=== PATIENT | female | born 1955 | race Caucasian/White ===

== ENCOUNTER 2022-11-30 08:26 | Outpatient (OUT) | payer MEDICARE, SELFPAY ==
--- NOTE | 2022-11-30 08:42 | MM_ITS ---
Patient: FREDA YOO Exam Date: 11/30/2022 : 1955 Gender:F Ordering : LAURENT DANIEL SANCHEZ [employer]ANGE RESEARCHER Admission #: [id number] Family : Order #: [id number] CLICK HERE TO VIEW EXAM RADIOLOGY REPORT PROCEDURE: MM TOMOSYNTHESIS SCREENING BI COMPARISON: MM SCREENING MAMMO BI, 11/20/2018. MM SCREENING MAMMO BI, 05/28/2015. INDICATIONS: SCREENING MAMMOGRAM Z12.31 Calculator Name NCI Breast Cancer Risk Assessment Tool 5 Year Breast Cancer Risk 1.50% Lifetime Breast Cancer Risk 5.00% Personal Breast Cancer No Personal Ovarian Cancer No Treatments None Family Cancers Father with lung cancer at age ~66. LOCATION: [facility] BREAST COMPOSITION: Heterogeneously dense,which may obscure small masses. FINDINGS: DIAGNOSTIC CATEGORY 1--NEGATIVE. RIGHT BREAST: No significant suspicious finding. No significant change has occurred. LEFT BREAST: No significant suspicious finding. No significant change has occurred. RECOMMENDATIONS: ROUTINE MAMMOGRAM AND CLINICAL EVALUATION IN 12 MONTHS. PLEASE NOTE: A NORMAL MAMMOGRAM DOES NOT EXCLUDE THE POSSIBILITY OF BREAST CANCER. A CLINICALLY SUSPICIOUS PALPABLE LUMP SHOULD BE BIOPSIED. Dictated by: Bryce Velazquez M.D. on 12/08/2022 at 12:51 Approved by: Bryce Velazquez M.D. on 12/08/2022 at 12:59
--- NOTE | 2022-11-30 08:46 | XR_ITS ---
[address] [address] Patient Name: FREDA YOO MRN: [id number] date: 1955 Sex: F Assigned Patient Location: [facility] Current Patient Location: [facility] Accession/Order Number: [id number] Exam Date: 11/30/2022 08:55 Report Date: 11/30/2022 09:26 At the request of: DANIEL SANCHEZ Procedure: XR DEXA axial skeleton EXAMINATION: XR DEXA axial skeleton, 11/30/2022 8:55 AM EDT HISTORY: POST MENOPAUSAL Z78.0 COMPARISON: None. TECHNIQUE: Dual-energy X-ray absorptiometry (DEXA) bone density study performed for the axial skeleton. HISTORY: POST MENOPAUSAL Z78.0 FINDINGS: Bone mineral density AP spine L1-L4 measures 1.157 g/sq cm. T score -0.2. WHO consultation: Normal. Lowest bone mineral density in the left femoral neck measures 0.86 g/sq cm for T score -1.1. WHO classification: Osteopenia IMPRESSION: Osteopenia. Moderate fracture risk Electronically authenticated by: ELINOR CASTRO Date: 11/30/2022 09:26
== END 2022-11-30 08:27 | disposition home or self-care (01) ==
LOC: MAMMO 08:32
PROVIDERS: PCP Nurse Practitioner; Visit Provider Nurse Practitioner
DX: M81.0 Age-related osteoporosis without current pathological fracture (principal); Z12.31 Encounter for screening mammogram for malignant neoplasm of breast; M85.80 Other specified disorders of bone density and structure, unspecified site; Z80.1 Family history of malignant neoplasm of trachea, bronchus and lung
CPT/HCPCS: 77063; 77067; 77080

== ENCOUNTER 2024-01-22 08:33 | Outpatient (OUT) | payer MEDICARE, SELFPAY ==
--- NOTE | 2024-01-22 08:39 | MM_ITS ---
Patient Name: FREDA YOO MR#: [id number] : 1955 Exam Date: 01/22/2024 Ordering Doctor: LAURENT Rojas CNP RADIOLOGY REPORT PROCEDURE: MM TOMOSYNTHESIS SCREENING BI COMPARISON: MM SCREENING MAMMO BI, 11/20/2018. MM TOMOSYNTHESIS SCREENING BI, 11/30/2022. INDICATIONS: Screening Calculator Name NCI Breast Cancer Risk Assessment Tool 5 Year Breast Cancer Risk 1.50% Lifetime Breast Cancer Risk 4.50% Personal Breast Cancer No Personal Ovarian Cancer No Treatments None Family Cancers Father with lung cancer at age ~66. LOCATION: [facility] BREAST COMPOSITION: The breasts are heterogeneously dense,which may obscure small masses. FINDINGS: DIAGNOSTIC CATEGORY 1--NEGATIVE. NO CHANGE FROM COMPARISON ASSESSMENT. Scattered benign-appearing calcifications are present. Scattered benign-appearing lymph nodes are present. RIGHT BREAST: No significant suspicious finding. LEFT BREAST: No significant suspicious finding. RECOMMENDATIONS: ROUTINE MAMMOGRAM AND CLINICAL EVALUATION IN 12 MONTHS. PLEASE NOTE: A NORMAL MAMMOGRAM DOES NOT EXCLUDE THE POSSIBILITY OF BREAST CANCER. A CLINICALLY SUSPICIOUS PALPABLE LUMP SHOULD BE BIOPSIED. Dictated by: Jaylen Ornelas MD on 01/22/2024 at 11:08 Approved by: Jaylen Ornelas MD on 01/22/2024 at 11:10
== END 2024-01-22 08:34 | disposition home or self-care (01) ==
LOC: MAMMO 08:34
PROVIDERS: PCP Nurse Practitioner; Visit Provider Nurse Practitioner
DX: Z12.31 Encounter for screening mammogram for malignant neoplasm of breast (principal); Z80.1 Family history of malignant neoplasm of trachea, bronchus and lung
CPT/HCPCS: 77063; 77067

== ENCOUNTER 2025-04-15 15:24 | Outpatient (OUT) | payer MEDICARE, SELFPAY ==
--- OUTSIDE RECORDS SUMMARY | 2025-04-15 15:26 | XMS_ITS | Clinical Summary ---
Author Organization [employer] [facility] tem Address [id number] [address] [place] [address] Care Team Providers Care Bedspread Cutter Name Role Phone TamirbatshevazoeEstrellita guardado Golden B[employer]-PATENT LITIGATION ASSOCIATE Primary Care Provider Allergies Active AllergyReactionsCriticalityNoted HuxrPgmlwcklZwdgzaw55/05/2013 Medications MedicationSigDispense QuantityRefillsLast FilledStart DateEnd DateStatus calcium citrate-vitamin D3 (CITRACAL MAXIMUM) 315-250 mg-units per tablet Take 2 tablets by mouth in the morning.Active MULTIVITAMIN ORAL Take 1 tablet by mouth once daily.Active Active Problems No known active problems Family History Medical HistoryRelationNameCommentsColon cancerBrotherCancerFatherBreast cancer Neg HxRelationNameStatusCommentsBrotherAliveFatherDeceasedMotherDeceased Social History Tobacco UseTypesPacks/DayYears UsedDateSmoking Tobacco: NeverSmokeless Tobacco: Never Tobacco Cessation:Counseling Given: Not Answered Alcohol UseStandard Drinks/WeekCommentsNot Currently0 (1 standard drink = 0.6 oz pure alcohol)ChildcareAnswerDate LifvojgsGnkylbvwoNvmeqrf58/12/2019Employment AnswerDate CwhwyjfbTxjcndmvzuVcrfxng93/12/2019Purpose - LifeAnswerDate Recorded Purpose and direction in mndxAnpfhlo22/11/2021CommentsNoSex and Gender InformationValueDate RecordedSex Assigned at BirthNot on fileLegal SexFemale 01/08/2015 12:10 PM EDTGender IdentityNot on fileSexual OrientationNot on file Last Filed Vital Signs Vital SignReadingTime TakenCommentsBlood Cpnkwsvv282/6811/ 8:45 AM EST Bbzfd425405/01/2024 8:45 AM MJWGqexwlxfssa90.1 ??C (98.7 ??F)05/01/2024 6:17 AM ESTRespiratory Ihnu124305/01/2024 8:45 AM ESTOxygen Ogzgdkddky01%05/01/2024 8:45 AM ESTInhaled Oxygen Concentration--Mhrsec16.6 kg (160 lb)05/01/2024 6:17 AM BRNZyhpyz688.9 cm (5' 1 )05/01/2024 6:17 AM ESTBody Mass Index30.23107/01/2023 6:17 AM EST Plan of Treatment Health MaintenanceDue DateLast DoneCommentsDepression Itdwhdkqa30/18/1966Adult BMI Follow Up Plan01/21/1972DTaP,Tdap and Td Vaccines (1 - Tdap)1973Zoster (Shingles) Vaccine (1 of 2)01/21/2004Fall Risk Alxoqomrm83/18/2019COVID-19 Vaccine ( - season), 04/02/2022, 03/29/2021, Additional history existsInfluenza Ojhwpah19, 05/07/2022, 03/11/2021, Additional history existsAdult BMI Mtocssxze58 Tobacco Gutghjkxu73olonoscopy, 05/01/2024 RSV ( or age 60+ yrs)Rnyxlinwm40/25/2023 Medical Devices Not on file Procedures Procedure NamePriorityDate/TimeAssociated DiagnosisCommentsPROVATION COLONOSCOPY Whgqvhg5905/01/2024 7:54 AM EST from Last 3 Months or Most Recently Relevant to Health Maintenance Results * Colonoscopy Report (05/01/2024 7:54 AM EST)Specimen (Source)Anatomical Location / LateralityCollection Method / VolumeCollection TimeReceived Time Narrative SYSTEMGENERATED, DOCUMENTATION - 05/01/2024 7:54 AM EST This order has been auto-finalized for image and report archival in PACs. *For full report details, please reach out to your physician. ??This image is visible to you in MyChart.* Authorizing ProviderResult TypeResult StatusMenaleksami Pat Fernando MDIMG OR IMG ORDERABLESFinal Result from Last 3 Months or Most Recently Relevant to Health Maintenance Insurance Care Teams Team MemberRelationshipSpecialtyStart DateEnd Date Estrellita Rojas, SUPERVISOR [employer]-PATENT LITIGATION ASSOCIATE [facility] [place] [place] [address] PCP - GeneralNurse Gswxmsrcojze47/12/24
--- OUTSIDE RECORDS SUMMARY | 2025-04-15 15:26 | XMS_ITS | Clinical Summary ---
Author Organization [facility] Address [address] [place] [address] Care Team Providers Care Photoengraving Supervisor Name Role Phone Estrellita Rojas OFFICE PROFESSIONAL Unavailable [phone] Oscar Aldrich MD Primary Care Provider [phone] Estrellita Rojas OFFICE PROFESSIONAL Unavailable [phone] Allergies Active AllergyReactionsCriticalityNoted KjhzBwtazgupGauhbvm96/05/2023 Medications MedicationSigDispense QuantityRefillsLast FilledStart DateEnd DateStatus levothyroxine (Synthroid, Levoxyl) 75 MCG tablet Indications:Hypothyroidism, unspecifiedTake 1 tablet (75 mcg) by mouth Daily 90 tablet 5Active alendronate (Fosamax) 70 MG tablet Indications:Age-related osteoporosis without current pathological fracture, OsteoporosisTake 1 tablet (70 mg) by mouth every 7 (seven) days 12 tablet 5Active simvastatin (Zocor) 20 MG tablet Indications:Hyperlipidemia, unspecifiedTake 1 tablet (20 mg) by mouth at bedtime 90 tablet 5Active Active Problems ProblemNoted DateDiagnosed DateColon cancer pqiplnifk40/09/2024Encounter for subsequent annual wellness visit (AWV) in Medicare wgiqtwq4703/13/2024 Assessment & Plan (03/13/2024 6:33 PM EDT): Reviewed Ht/Wt/BMI Recommend eye exam yearly Recommend dental exams twice a year Balance work/leisure activities Exercises is recommended most days of the week (appropriate as chronic conditions allow) Follow up yearly and prn Mixed nrtbnkbwoibndy25/04/2024 Assessment & Plan (10/21/2024 2:49 PM EDT): On statin therapy Check labs yearly and prn dose changes Discussed her lab results, no change in dose Try to cut back on carb consumption Assessment & Plan (09/07/2023 9:29 AM EDT): Check labs, statin continue Essential hypertension, nmwwmi4409/07/2023 Assessment & Plan (09/07/2023 9:29 AM EDT): No meds, and BP is normal Osteoarthritis of knee09/07/2023Osteoporosis, nasgfktilpvgig03/04/2024 Overview (09/07/2023): DEXA: 11/30/22, -1.1, osteopenia Assessment & Plan (10/21/2024 7:43 AM EDT): DEXA: 11/30/22: -1.1 osteopenia Takes alendronate weekly Due for DEXA 11/2024 Assessment & Plan (09/07/2023 9:28 AM EDT): Check labs, cont current meds Encounter for screening mammogram for malignant neoplasm of modzhq3409/07/2023 Hypothyroidism, okhwpdlaohi04/11/2024 Assessment & Plan (10/21/2024 7:42 AM EDT): On levothyroxine Check labs yearly and prn dose changes, or changes in sxs Assessment & Plan (09/07/2023 9:29 AM EDT): Is doing well on current meds Will check labs Resolved Problems ProblemNoted DateDiagnosed DateResolved DateURI, acute Assessment & Plan (06/03/2024 5:06 PM EST): Likely viral Recommend OTC treatment of symptoms, has trialed multiple OTC meds, cough continues, clear mucus. Iwould recommend OTC Flonase nasal spray, pt does not like to use this Also recommend she take her anti histamine meds, she states she hasn't been d/t ingredients in her multiple other OTC cough meds she is taking Will add tessalon Q 8 hours prn cough If on 06/06/24 she is not better call office Symptoms of urinary tract idvbglzmb34/ Immunizations ImmunizationAdministration DatesNext DueInfluenza, High Dose Seasonal, Preservative Free05/10/2024,03/21/2019Influenza, Seasonal, Quadrivalent, Mpysmjkrrm60/24/2023,05/07/2022,03/11/2021,04/04/2020Moderna SARS-CoV-2 Qqborqckbgh24/16/2021,1Pfizer Purple Cap SARS-CoV-2 Vaccination 1Pneumococcal Conjugate PCV 131RSV, recombinant, protein subunit RSVpreF, adjuvant reconstitu, 120mcg/0.5mL, PF (Arexvy)04/29/2023 SARS-COV-2 (COVID-19) vaccine, mRNA, spike protein, LNP, PF, tigre-sucrose, 30 mcg/0.3 mL02/26/20230644QTAL-YXZ-3 (COVID-19) vaccine, mRNA, spike protein, LNP, bivalent, preservative free, 30 mcg/0.3 mLdose, tigre-sucrose formulation 04/02/2022Zoster, Ncbicpmhgfg05/06/2024 Family History Medical HistoryRelationNameCommentsCancerFatherParkinson's diseaseMotherRelation NameStatusCommentsFatherMother Social History Tobacco UseTypesPacks/DayYears UsedDateSmoking Tobacco: NeverSmokeless Tobacco: Never Tobacco Cessation:Counseling Given: Not Answered Alcohol UseStandard Drinks/WeekCommentsNever0 (1 standard drink = 0.6 oz pure alcohol)caffine: soda 1-2 yewzuH5073 Health LiteracyAnswerDate RecordedHow often do you need to have someone help you when you read instructions, pamphlets, or other written material from your doctor or pharmacy?Never03/06/2024Social Connection and Isolation PanelAnswerDate RecordedIn a typical week, how many times do you talk on the phone with family, friends, or neighbors?Three times a week03/06/2024How often do you get together with friends or relatives?Three times a week03/06/2024How often do you attend scientology or zoroastrian services?1 to 4 times per year03/06/2024o you belong to any clubs or organizations such as scientology groups, unions, fraternal or athletic groups, or school groups?No 03/06/2024How often do you attend meetings of the clubs or organizations you belong to?Never03/06/2024re you , , , , never , or living with a partner?Rgslylg0303/06/2024UDIT-CAnswerDate RecordedQ1: How often do you have a drink containing alcohol?Never03/06/2024Q2: How many drinks containing alcohol do you have on a typical day when you are drinking? Patient does not drink03/06/2024Q3: How often do you have six or more drinks on one occasion?Never03/06/2024HQ-2AnswerDate RecordedPatient Health Questionnaire-2 Aycxl131[facility] [place] [facility] - Occupational Stress QuestionnaireAnswerDate RecordedDo you feel stress - tense, restless, nervous, or anxious, or unable to sleep at night because yourmind is troubled all the time - these days?Not at all03/06/2024Exercise Vital SignAnswer Date RecordedOn average, how many days per week do you engage in moderate to strenuous exercise (like a brisk walk)?0 days03/06/2024On average, how many minutes do you engage in exercise at this level?10 min03/06/2024Hunger Vital SignAnswerDate RecordedWithin the past 12 months, you worried that your food would run out before you got the money to buymore.Never true03/06/2024Within the past 12 months, the food you bought just didn't last and you didn't have money to get more.Never true03/06/2024RAPARE - TransportationAnswerDate RecordedIn the past 12 months, has lack of transportation kept you from medical appointments or from getting medications?No03/06/2024In the past 12 months, has lack of transportation kept you from meetings, work, or from getting things needed for daily living?No03/06/2024Housing Stability Vital SignAnswerDate RecordedIn the last 12 months, was there a time when you were not able to pay the mortgage or rent on time?No03/06/2024In the past 12 months, how many times have you moved where you were living?t any time in the past 12 months, were you homeless or living in a skilled nursing (including now)?No03/06/2024 CommentsUnknownSex and Gender InformationValueDate RecordedSex Assigned at BirthNot on fileLegal DpgEcwepo33/09/2023 7:54 AM EDTGender IdentityNot on fileSexual OrientationNot on file Last Filed Vital Signs Vital SignReadingTime TakenCommentsBlood Wxydcbuj866/7805 2:29 PM EDT Xlrtn4700 2:29 PM XMNMrnnqluwywk77.9 ??C (98.5 ??F)10/21/2024 2:29 PM EDTRespiratory Sscv351110/21/2024 2:29 PM EDTOxygen Pwbzbamxkx83%10/21/2024 2:29 PM EDTInhaled Oxygen Concentration--Pitlnw77.9 kg (165 lb 3.2 oz)10/21/2024 2:29 PM XIKCdzhmr771.9 cm (5' 1 )06/03/2024 4:30 PM ESTBody Mass Index31. 4:30 PM EST Plan of Treatment Health MaintenanceDue DateLast DoneCommentsCT Lwmrgynksrjt1955FIT 1955FOBT1955 2598Smarrqsomqtcj1954FIT-DNA/ Xtyhycurq47/, 01/22/2024, 01/22/2024, Additional history exists COVID-19 Vaccine ( season)/11/2023, 02/26/2023, 03/29/2021, Additional history existsInfluenza Vaccine (#1)/11/2023, 02/26/2023, 05/07/2022, Additional history existsMedicare Annual Wellness (AWV) /02/2024, 03/13/2024neumococcal Vaccine: 65+ Years (2 of 2 - PCV20 or PCV21)Postponed from 03/21/2020 (Patient Refused) Hbpknkptoim43, 05/01/2024, 4Colorectal Cancer Zrvpmnodm43/27/2029 Procedures Procedure NamePriorityDate/TimeAssociated DiagnosisCommentsMM TOMOSYNTHESIS SCREENING BI01/22/2024 11:10 AM EDT from Last 3 Months or Most Recently Relevant to Health Maintenance Results * MM TOMOSYNTHESIS SCREENING BI (01/22/2024 11:10 AM EDT)Anatomical Region LateralityModalityOtherSpecimen (Source)Anatomical Location / Laterality Collection Method / VolumeCollection TimeReceived Time01/22/2024 11:10 AM EDT Narrative 01/22/2024 11:11 AM EDT [facility] ?[address] ? [place] [address] ? Mammography Report ? Signed ? Patient: FREDO, M ?MR#: [id number] ?? : 1955 ?Acct:[id number] ?? Age/Sex: 69 / F ?ADM Date: 01/22/24 ?? Loc: MAMMO ? Attending Dr: Estrellita J Tamirhjacob OFFICE PROFESSIONAL ? Ordering Physician: Estrellita Rojas OFFICE PROFESSIONAL ?Results: ? Date of Service: 01/22/24 ?Follow Up: ? Procedure(s): MM tomosynthesis screening BI ?? Accession Number(s): [id number] ? cc: Estrellita Rojas OFFICE PROFESSIONAL ? Patient Name: ? NANCY YOO ? MR#: [id number] ? : 1955 ? Exam Date: 01/22/2024 ?? Ordering Doctor: LAURENT Rojas CNP ? RADIOLOGY REPORT ? PROCEDURE: ? MM TOMOSYNTHESIS SCREENING BI ? COMPARISON: ? MM SCREENING MAMMO BI, 11/20/2018. ??MM TOMOSYNTHESIS SCREENING ?? BI, 11/30/2022. ? INDICATIONS: ? Screening ? Calculator Name ? NCI Breast Cancer Risk Assessment Tool ?? 5 Year Breast Cancer Risk ? 1.50% ?? Lifetime Breast Cancer Risk ? 4.50% ?? Personal Breast Cancer ?No ?? Personal Ovarian Cancer ? No ?? Treatments ? None ?? Family Cancers ? Father with lung cancer at age ??66. ? LOCATION: ? [facility] ? BREAST COMPOSITION: ? The breasts are heterogeneously dense,which may ?? obscure small masses. ? FINDINGS: ? DIAGNOSTIC CATEGORY 1--NEGATIVE. NO CHANGE FROM COMPARISON ASSESSMENT. ? Scattered benign-appearing calcifications are present. ??Scattered ?? benign-appearing lymph nodes are present. ? RIGHT BREAST: ??No significant suspicious finding. ? LEFT BREAST: ??No significant suspicious finding. ? RECOMMENDATIONS: ? ROUTINE MAMMOGRAM AND CLINICAL EVALUATION IN 12 MONTHS. ? PLEASE NOTE: ??A NORMAL MAMMOGRAM DOES NOT EXCLUDE THE POSSIBILITY OF BREAST ?? CANCER. ??A CLINICALLY SUSPICIOUS PALPABLE LUMP SHOULD BE BIOPSIED. ? Dictated by: Jaylen Ornelas MD on 01/22/2024 at 11:08 ? Approved by: Jaylen Ornelas MD on 01/22/2024 at 11:10 ? Dictated By: ?Jaylen Ornelas M.D. ? Signed By: ?01/22/24 1111 ? DD/ 1110 ? TD/TT: ? Traffic Police Officer: Procedure Note Radiology, Radiologist, MD - 01/22/2024 [place] [address] Mammography Report Signed Patient: NANCY YOO MMR#: [id number] : 1955cct:[id number] Age/Sex: 69 / FADM Date: 01/22/24 Loc: MAMMO Attending Dr: Estrellita Rojas OFFICE PROFESSIONAL Ordering Physician: Estrellita Rojas NPResults: Date of Service: 01/22/24Follow Up: Procedure(s): MM tomosynthesis screening BI Accession Number(s): [id number] cc: Estrellita Rojas NP Patient Name: NANCY YOO MR#: [id number] : 1955 Exam Date: 01/22/2024 Ordering Doctor: LAURENT Rojas ENDBANDER RADIOLOGY REPORT PROCEDURE: MM TOMOSYNTHESIS SCREENING BI COMPARISON: MM SCREENING MAMMO BI, 11/20/2018. MM TOMOSYNTHESISSCREENING BI, 11/30/2022. INDICATIONS: Screening Calculator Name NCI Breast Cancer Risk Assessment Tool 5 Year Breast Cancer Risk 1.50% Lifetime Breast Cancer Risk 4.50% Personal Breast Cancer No Personal Ovarian Cancer No Treatments None Family Cancers Father with lung cancer at age 66. LOCATION: [facility] BREAST COMPOSITION: The breasts are heterogeneously dense,which may obscure small masses. FINDINGS: DIAGNOSTIC CATEGORY 1--NEGATIVE. NO CHANGE FROM COMPARISON ASSESSMENT. Scattered benign-appearing calcifications are present. Scattered benign-appearing lymph nodes are present. RIGHT BREAST: No significant suspicious finding. LEFT BREAST: No significant suspicious finding. RECOMMENDATIONS: ROUTINE MAMMOGRAM AND CLINICAL EVALUATION IN 12 MONTHS. PLEASE NOTE: A NORMAL MAMMOGRAM DOES NOT EXCLUDE THE POSSIBILITY OFBREAST CANCER. A CLINICALLY SUSPICIOUS PALPABLE LUMP SHOULD BE BIOPSIED. Dictated by: Jaylen Ornelas MD on 01/22/2024 at 11:08 Approved by: Jaylen Ornelas MD on 01/22/2024 at 11:10 Dictated By: Jaylen Ornelas M.D. Signed By:01/22/24 1111 DD/ 1110 TD/TT: Traffic Police Officer: Authorizing ProviderResult TypeResult StatusLisa Rojas NPCLINISYNC IMAGING Final Result from Last 3 Months or Most Recently Relevant to Health Maintenance Insurance Care Teams Team MemberRelationshipSpecialtyStart DateEnd Date Oscar Aldrich MD PCP - GeneralFamily Medicine07/27/23 Estrellita Rojas NP [address] [place] [address] PCP - ACO Reach07/12/24 Estrellita Rojas NP Nurse PractitionerFamily Vykprtoq63/1/23
--- OUTSIDE RECORDS SUMMARY | 2025-04-15 15:26 | XMS_ITS | Encounter Summary ---
Author Organization [facility] Address [address] [place] [address] Care Team Providers Care Medical Delivery Technician Name Role Phone Estrellita Rojas NP Unavailable [phone] Oscar Aldrich MD Primary Care Provider [phone] Estrellita Rojas NP Unavailable [phone] Encounter Details DateTypeDepartmentCare Team (Latest Contact Info)Jbkgdszvpup71/19/2024Clinisync Result Encounter [facility] Unsolicited Estrellita Rojas NP [address] [place] [address] Social History Tobacco UseTypesPacks/DayYears UsedDateSmoking Tobacco: NeverSmokeless Tobacco: NeverAlcohol UseStandard Drinks/WeekCommentsNever0 (1 standard drink = 0.6 oz pure alcohol)caffine: soda 1-2 [id number] Health LiteracyAnswerDate RecordedHow often do you need to have someone help you when you read instructions, pamphlets, or other written material from your doctor or pharmacy?Never 03/06/2024Social Connection and Isolation PanelAnswerDate RecordedIn a typical week, how many times do you talk on the phone with family, friends, or neighbors?Three times a week03/06/2024How often do you get together with friends or relatives?Three times a week03/06/2024How often do you attend anabaptist or bahai services?1 to 4 times per year03/06/2024o you belong to any clubs or organizations such as anabaptist groups, unions, fraternal or athletic groups, or school groups?No03/06/2024How often do you attend meetings of the clubs or organizations you belong to?Never03/06/2024re you , , , , never , or living with a partner?Lrcrxpg9003/06/2024UDIT-C AnswerDate RecordedQ1: How often do you have a drink containing alcohol?Never 03/06/2024Q2: How many drinks containing alcohol do you have on a typical day when you are drinking?Patient does not drink03/06/2024Q3: How often do you have six or more drinks on one occasion?Never03/06/2024HQ-2AnswerDate Recorded Patient Health Questionnaire-2 [id number] city [facility] Occupational Health - Occupational Stress QuestionnaireAnswerDate RecordedDo you feel stress - tense, restless, nervous, or anxious, or unable to sleep at night because your mind is troubled all the time - these days?Not at all03/06/2024Exercise Vital SignAnswerDate RecordedOn average, how many days per week do you engage in moderate to strenuous exercise (like a brisk walk)?0 days03/06/2024On average, how many minutes do you engage in exercise at this level?10 min03/06/2024Hunger Vital SignAnswerDate RecordedWithin the past 12 months, you worried that your food would run out before you got the money to buymore.Never true03/06/2024 Within the past 12 months, the food you [...] were you homeless or living in a [place] (including now)?No03/06/2024 CommentsUnknownSex and Gender InformationValueDate RecordedSex Assigned at BirthNot on fileLegal UxlPhjthl64/09/2023 7:54 AM EDTGender IdentityNot on fileSexual OrientationNot on filedocumented as of this encounter Functional Status * AUDIT-C ScoreAnswerDate of NjstujgtqtJfxzsk514/02/2024 10:23 PM Marlon, Generic * Q1: How often do you have a drink containing alcohol?AnswerDate of Assessment XawoxmBcpuv14/02/2024 10:23 PM Marlon Generic * Q2: How many drinks containing alcohol do you have on a typical day when you are drinking?AnswerDate of AssessmentAuthorPatient does not drink03/06/2024 10:23 PM Marlon Generic * Q3: How often do you have six or more drinks on one occasion?AnswerDate of XapxcajpaiRnhuwcXxetu92/02/2024 10:23 PM Marlon, Generic * Over the past 2 weeks, how often have you been bothered by any of the following problems?QuestionAnswerDate of AssessmentAuthorLittle interest or pleasure in doing thingsNot at all03/13/2024 5:20 PM Shruti Bailey MA Feeling down, depressed, or hopelessNot at all03/13/2024 5:20 PM Shruti Bailey MAPatient Health Questionnaire-2 [id number] 5:20 PM EDT Shruti Madera MA * QuestionAnswerDate of AssessmentAuthorTrouble falling or staying asleep, or sleeping too muchNot at all03/13/2024 5:20 PM Shruti Bailey MAFeeling tired or having little energyNot at all03/13/2024 5:20 PM Shruti Bailey MAPoor appetite or overeatingNot at all03/13/2024 5:20 PM EDT Shruti Madera MAFeeling bad about yourself - or that you are a failure or have let yourself or your family downNot at all03/13/2024 5:20 PM EDT Shruti Madera MATrouble concentrating on things, such as reading the newspaper or watching televisionNot at all03/13/2024 5:20 PM Shruti Bailey MAMoving or speaking so slowly that other people could have noticed? Or the opposite - being so fidgety or restless that you have been moving around a lot more than usual.Nearly every day03/13/2024 5:20 PM Shruti Bailey MAThoughts that you would be better off or hurting yourself in some wayNot at all03/13/2024 5:20 PM Shruti Bailey MAPatient Health Questionnaire-9 [id number] 5:20 PM Shruti Bailey MA * Geriatric Depression Scale (Short Version)QuestionAnswerDate of Assessment AuthorAre you basically satisfied with your life?Yes03/13/2024 5:25 PM EDT Shruti Madera MAHave you dropped many of your activities and interests? No03/13/2024 5:25 PM Shruti Bailey MADo you feel that your life is empty?No03/13/2024 5:25 PM Shruti Bailey MADo you often get bored?No 03/13/2024 5:25 PM Shruti Bailey MAAre you in good spirits most of the time?Yes03/13/2024 5:25 PM Shruti Bailey MAAre you afraid that something bad is going to happen to you?No03/13/2024 5:25 PM Shruti Bailey MADo you feel happy most of the time?Yes03/13/2024 5:25 PM EDT Shruti Madera MADo you often feel helpless?No03/13/2024 5:25 PM DARIOT Shruti Madera MADo you prefer to stay at home, rather than going out and doing new things?No03/13/2024 5:25 PM EDShruti Jaramillo MADo you feel you have more problems with memory than most?No03/13/2024 5:25 PM Shruti Bailey MADo you think it is wonderful to be alive now?Yes03/13/2024 5:25 PM EDShruti Jaramillo MADo you feel pretty worthless the way you are now?No 03/13/2024 5:25 PM EDShruti Jaramillo MADo you feel full of energy?Yes 03/13/2024 5:25 PM Shruti Bailey MADo you feel that your situation is hopeless?No03/13/2024 5:25 PM Shruti Bailey MADo you think that most people are better off than you are?No03/13/2024 5:25 PM Shruti Bailey MAGeriwilliamson [facility] Depression Scale (Short Version) Febnd040 5:25 PM EDT Shruti Madera MA documented as of this encounter Plan of Treatment Not on file documented as of this encounter Procedures Procedure NamePriorityDate/TimeAssociated DiagnosisCommentsMM TOMOSYNTHESIS SCREENING BI01/22/2024 11:10 AM EDT documented in this encounter Results * MM TOMOSYNTHESIS SCREENING BI (01/22/2024 11:10 AM EDT)Anatomical Region LateralityModalityOtherSpecimen (Source)Anatomical Location / Laterality Collection Method / VolumeCollection TimeReceived Time01/22/2024 11:10 AM EDT Narrative 01/22/2024 11:11 AM EDT [facility] ?[address] ? [place] [address] ? Mammography Report ? Signed ? Patient: FREDO, M ?MR#: [id number] ?? : 1955 ?Acct:[id number] ?? Age/Sex: 69 / F ?ADM Date: 08/19/24 ?? Loc: MAMMO ? Attending Dr: Estrellita J Aichholz IT SENIOR SOFTWARE ENGINEER JAVA ? Ordering Physician: Aichholz,Estrellita IT SENIOR SOFTWARE ENGINEER JAVA ?Results: ? Date of Service: 01/22/24 ?Follow Up: ? Procedure(s): MM tomosynthesis screening BI ?? Accession Number(s): [id number] ? cc: Estrellita Rojas IT SENIOR SOFTWARE ENGINEER JAVA ? Patient Name: ? FREDO ? MR#: [id number] ? : 1955 ? Exam Date: 01/22/2024 [...] at age ??65. ? LOCATION: ? [facility] ? BREAST COMPOSITION: ? The breasts are [...] By: ?Jaylen Ornelas M.D. ? Signed By: ?01/21/24 1111 ? DD/ 1110 ? TD/TT: ? Software Quality Automation Engineer: Procedure Note Radiology, Radiologist, - 01/22/2024 [place] [address] Mammography Report Signed Patient: NANCY YOO MMR#: [id number] : 1955cct:[id number] Age/Sex: 69 / FADM Date: 01/22/24 Loc: MAMMO Attending Dr: Estrellita Rojas NP Ordering Physician: Estrellita Rojasesults: Date of Service: 01/22/24Follow Up: Procedure(s): MM tomosynthesis screening BI Accession Number(s): [id number] cc: Estrellita Rojas NP Patient Name: NANCY YOO MR#: [id number] : 1955 Exam Date: 01/22/2024 Ordering Doctor: LAURENT Rojas CNP RADIOLOGY REPORT PROCEDURE: MM TOMOSYNTHESIS SCREENING BI COMPARISON: MM SCREENING MAMMO BI, 11/20/2018. MM TOMOSYNTHESISSCREENING BI, 11/30/2022. INDICATIONS: Screening Calculator Name NCI Breast Cancer Risk Assessment Tool 5 Year Breast Cancer Risk 1.50% Lifetime Breast Cancer Risk 4.50% Personal Breast Cancer No Personal Ovarian Cancer No Treatments None Family Cancers Father with lung cancer at age 66. LOCATION: [facility] BREAST COMPOSITION: The breasts are heterogeneously dense,which [...] M.D. Signed By:01/22/24 1111 DD/ 1110 TD/TT: Software Quality Automation Engineer: Authorizing ProviderResult TypeResult StatusLisa Crystal NPCLINISYNC IMAGING Final Result documented in this encounter Visit Diagnoses Not on filedocumented in this encounter Care Teams Team MemberRelationshipSpecialtyStart DateEnd Date Oscar Aldrich MD PCP - GeneralFamily Medicine07/27/23 Estrellita Rojas NP [address] [place] [address] PCP - ACO Reach07/12/24 Estrellita Rojas NP Nurse PractitionerFamily Ybxsrnag23/1/23documented as of this encounter
--- OUTSIDE RECORDS SUMMARY | 2025-04-15 15:27 | XMS_ITS | CCD ---
Author Organization [facility] Care Team Providers Care Business Services Sales Representative Name Role Phone OG RODRIGUES Referring Unavailabl ELINOR Perla Primary Care Unavailable AICHHOLZ, TACTICAL DECEPTION PLANS OFFICER ESTRELLITA Admitting Unavailable AICHHOLZ, TACTICAL DECEPTION PLANS OFFICER ESTRELLITA Attending Unavailable AICHHOLZ, TACTICAL DECEPTION PLANS OFFICER ESTRELLITA Consulting Unavailable MADDOXBEULAH PatIN Consulting Unavailable Aichholz STITCHER AROUND, Estrellita Unavailable Oscar Aldrich MD Primary Care Provider [phone] WILMER POSADA Attending Unavailable AICHHOLZ, ESTRELLITA J Referring Unavailable AICHHOLZ, ESTRELLITA J Primary Care Unavailable AICHHOLZ, ESTRELLITA J Referring Unavailable AICHHOLZ, ESTRELLITA J Primary Care Unavailable ELIZ, MENNATALLAH Admitting Unavailable ELIZ, MENNATALLAH Attending Unavailable ELIZ, MENNATALLAH Referring Unavailable AICHHOLZ, ESTRELLITA J Primary Care Unavailable Aichholz CAREGIVERS NON MEDICAL-TACTICAL DECEPTION PLANS OFFICER, Estrellita J Primary Care Provider Aichholz STITCHER AROUND, Estrellita Unavailable AICHHOLZ, ESTRELLITA Attending Unavailable AICHHOLZ, ESTRELLITA Attending Unavailable AICHHOLZ, ESTRELLITA Attending Unavailable Aichholz STITCHER AROUND-C, Estrellita J Primary Care Provider Aichholz STITCHER AROUND-C, Estrellita J Attending Provider Aichholz STITCHER AROUND, Estrellita Unavailable Oscar Aldrich MD Primary Care Provider [phone] Aichholz STITCHER AROUND, Estrellita Unavailable Allergies Allergy ClassificationReported Allergen(s)Allergy TypeDate of OnsetReaction(s) Facility (20 sources)Codeine; Translations: [CODEINE]Drug Nvupajh59-98-2966[facility] Medications Current Medications MedicationDrug Class(es)DatesSig (Normalized)Sig (Original)alendronic acid 70 mg oral tablet (20 sources)BisphosphonateStart: 03-14-2025 End: 82-91-2873phyd 1 tablet by mouth every weekAlendronate 70 mg tablet Active 70 MG PO every week 12 March 25, 2025 11:11am Osteoporosis Age-related osteoporosis without current pathological fracture Complies with drug therapy Start: 09-09-2024 End: 52-65-7300ldviozxkfhg (Fosamax) 70 MG tablet Indications: Age-related osteoporosis without current pathological fracture , Osteoporosis Take 1 tablet (70 mg) by mouth every 7 (seven) days 12 tablet 1 12/01/2024 02/23/2025 Active Start: 03-27-2024 End: 07-56-1141gnpu 1 tablet by mouth every weekalendronate (FOSAMAX) 70 mg tablet Take 1 tablet (70 mg total) by mouth Once a week. 03/27/2024 06/19/2024 ActiveStart: 10-06-2023 End: 62-72-8889jzyhdjprkja (Fosamax) 70 MG tablet Indications: Age-related osteoporosis without current pathological fracture (CMS/HCC) , Osteoporosis (CMS/HCC) Take 1 tablet (70 mg) by mouth every 7 (seven) days 12 tablet 1 03/27/2024 Activebenzonatate 200 mg oral capsule (2 sources)Non-narcotic AntitussiveStart: 06-03-2024 End: 04-23-0264jsax 1 capsule by mouth three times daily as needed for cough benzonatate (Tessalon) 200 MG capsule Indications: URI, acute Take 1 capsule (200 mg) by mouth 3 (three) times a day as needed for cough for up to 7 days Take with full glass of water. Do not crush or chew. 21 capsule 06/03/2024 06/10/2024 Activecalcium citrate 1500 mg / cholecalciferol 250 unt oral tablet (6 sources)Vitamin Dtake 2 tablets by mouth once in the morningcalcium citrate- vitamin D3 (CITRACAL MAXIMUM) 315-250 mg-units per tablet Take 2 tablets by mouth in the morning. Active End: 51-40-2453bxoe 1 tablet by mouth in the morningcalcium citrate 315 mg + D2 6.25 mcg tablet Take 1 tablet by mouth in the morning and 1 tablet before bedtime. 03/13/2024 Discontinuedlevothyroxine sodium 0.075 mg oral tablet (19 sources)l-ThyroxineStart: 03-14-2025 End: 63-01-3603hadg 1 tablet by mouth once dailyLevothyroxine 75 mcg tablet Active 75 MCG PO Daily 90 March 25, 2025 11:12am Hypothyroidism Hy pothyroidism, unspecified Complies with drug therapyStart: 03-06-2024 End: 03-60-0792ffaw 1 tablet by mouth once dailylevothyroxine (Synthroid, Levoxyl) 75 MCG tablet Indications: Hypothyroidism, unspecified Take 1 tablet (75 mcg) by mouth Daily 90 tablet 09/11/2024 ActiveMULTIVITAMIN ORAL (2 sources)take 1 tablet by mouth once dailyMULTIVITAMIN ORAL Take 1 tablet by mouth once daily. Activesimvastatin 20 mg oral tablet (20 sources)HMG-CoA Reductase InhibitorStart: 03-14-2025 End: 16-32-3529wzwg 1 tablet by mouth once daily at bedtimeSimvastatin 20 mg tablet Active 20 MG PO Daily at bedtime 90 March 25, 2025 11:12am Mixed hyperlipidemia Mixed hyperlipidemia Complies with drug therapyStart: 10-02-2023 End: 46-64-5048gdil 1 tablet by mouth at bedtimesimvastatin (Zocor) 20 MG tablet Indications: Hyperlipidemia, unspecified Take 1 tablet (20 mg) by mouth at bedtime 90 tablet 1 12/11/2024 03/11/2025 Activesod sulf-pot chloride-mag sulf 1.479-0.188- 0.225 gram tablet (2 sources)Start: 31-16-8733mwx sulf-pot chloride-mag sulf 1.479-0.188- 0.225 gram tablet Indications: Encounter for screening colonoscopy Please see instructional sheet given by physicians office. 24 tablet 04/16/2024 Active Problems Active Problems Problem ClassificationProblemDateDocumented DateEpisodic/ChronicDisorders of lipid metabolism (20 sources)Mixed hyperlipidemia; Translations: [Mixed hyperlipidemia]Onset: 80-49-031374257772-13-9659YglegxvMiqjfltwd hypertension (18 sources)Benign essential hypertension; Translations: [Essential (primary) hypertension]Onset: 350037-13-1469DzgzxxqRcfsdtmcnxbydq (17 sources)Osteoarthritis of knee; Translations: [Osteoarthritis of knee, unspecified]Onset: 096152-62-8386IqpmqlrHphjhzfscsdn (20 sources)Postmenopausal osteoporosis; Translations: [Age-related osteoporosis without current pathological fracture]Onset: 336372-04-5984NhfglhcLxfwk non-traumatic joint disorders (4 sources)Pain in left knee; Translations: [PAIN IN LEFT KNEE]Onset: 11-18-2021 EpisodicOther non-traumatic joint disorders (1 source)Effusion, left knee; Translations: [EFFUSION LEFT KNEE]Onset: 80-06-2486FzdqjoozNlldalwu codes; unclassified (1 source)Family history of malignant neoplasm of digestive organs; Translations: [Family history of malignant neoplasm of digestive organs]Onset: 59-68-7941NsyelynfGrtrbhu disorders (20 sources)Hypothyroidism; Translations: [Hypothyroidism, unspecified]Onset: 282014-99-9942CczvztqDstdaursthsg (1 source)Colon Cancer ScreeningOnset: 02-31-7183Pfnujcmoknyq (1 source)screeningOnset: 05-01-2024 Past or Other Problems Problem ClassificationProblemDateDocumented DateEpisodic/ChronicGenitourinary symptoms and ill-defined conditions (16 sources)Urinary symptoms ; Translations: [Unspecified symptoms and signs involving the genitourinary system]Onset: 09-14-2023 Resolved: 486861-51-1378WnjuqoepNpcx disorders (13 sources)Mood disordersOnset: 908315-67-2524Hqaeu screening for suspected conditions (not mental disorders or infectious disease) (20 sources)Patient encounter status; Translations: [Encounter for screening mammogram for malignant neoplasm of breast]Onset: 034369-50-7238Cwjlptas Other upper respiratory infections (12 sources)Acute upper respiratory infection; Translations: [Acute upper respiratory infection, unspecified]Onset: 06-03-2024 Resolved: 651976-88-8817CcptwbsoWemsdbpz codes; unclassified (1 source)Family history of cancer of colon; Translations: [Family history of malignant neoplasm of digestiveorgans]38-68-8523Gcocuhyf Results Test NameValueInterpretationReference RangeFacilityMM TOMOSYNTHESIS SCREENING BI on 91-06-2613[place] [address] Mammography Report Signed Patient: NANCY YOO MR#: [id number] : 1955 Acct:[id number] Age/Sex: 69 / F ADM Date: 01/22/24 Loc: MAMMO Attending Dr: Estrellita Rojas NP Ordering Physician: Estrellita Rojas NP Results: Date of Service: 01/22/24 Follow Up: Procedure(s): MM tomosynthesis screening BI Accession Number(s): [id number] cc: Estrellita Rojas NP Patient Name: NANCY YOO MR#: [id number] : 1955 Exam Date: 01/22/2024 Ordering Doctor: LAURENT Rojas CNP RADIOLOGY REPORT PROCEDURE: MM TOMOSYNTHESIS SCREENING BI COMPARISON: MM SCREENING MAMMO BI, 11/20/2018. MM TOMOSYNTHESIS SCREENING BI, 11/30/2022. INDICATIONS: Screening Calculator Name NCI Breast Cancer Risk Assessment Tool 5 Year Breast Cancer Risk 1.50% Lifetime Breast Cancer Risk 4.50% Personal Breast Cancer No Personal Ovarian Cancer No Treatments None Family Cancers Father with lung cancer at age 66. LOCATION: [facility] BREAST COMPOSITION: The breasts are [...] DOES NOT EXCLUDE THE POSSIBILITY OF BREAST CANCER. A CLINICALLY SUSPICIOUS PALPABLE LUMP SHOULD BE BIOPSIED. Dictated by: Elinor Ornelas MD on 01/22/2024 at 11:08 Approved by: Elinor Ornelas MD on 01/22/2024 at 11:10 Dictated By: Elinor Ornelas M.D. Signed By: 01/22/24 1111 DD/ 1110 TD/TT: Line Appliance Assembler:TBHRadiology, Radiologist, - 01/22/2024 [place] [address] Mammography Report Signed Patient: NANCY YOO MR#: [id number] : 1955 Acct:[id number] Age/Sex: 69 / F ADM Date: 01/22/24 Loc: MAMMO Attending Dr: Estrellita Rojas NP Ordering Physician: Estrellita Rojas NP Results: Date of Service: 01/22/24 Follow Up: Procedure(s): MM tomosynthesis screening BI Accession Number(s): [id number] cc: Estrellita Rojas NP Patient Name: NANCY YOO MR#: [id number] : 1955 Exam Date: 01/22/2024 Ordering Doctor: LAURENT Rojas CNP RADIOLOGY REPORT PROCEDURE: MM TOMOSYNTHESIS SCREENING BI COMPARISON: MM SCREENING MAMMO BI, 11/20/2018. MM TOMOSYNTHESIS SCREENING BI, 11/30/2022. INDICATIONS: Screening Calculator Name NCI Breast Cancer Risk Assessment Tool 5 Year Breast Cancer Risk 1.50% Lifetime Breast Cancer Risk 4.50% Personal Breast Cancer No Personal Ovarian Cancer No Treatments None Family Cancers Father with lung cancer at age 66. LOCATION: [facility] BREAST COMPOSITION: The breasts are [...] DOES NOT EXCLUDE THE POSSIBILITY OF BREAST CANCER. A CLINICALLY SUSPICIOUS PALPABLE LUMP SHOULD BE BIOPSIED. Dictated by: Elinor Ornelas MD on 01/22/2024 at 11:08 Approved by: Elinor Ornelas MD on 01/22/2024 at 11:10 Dictated By: Elinor Ornelas M.D. Signed By: 01/22/24 1111 DD/ 1110 TD/TT: Line Appliance Assembler: JEFF HealthcareRadiology Study observation (narrative)[facility] HospitalMM TOMOSYNTHESIS SCREENING BIOrdered By: Radiologist Radiology on 61-96-1328RGXX [employer] Work Phone: XR KNEE LT 4V or >on 64-40-6366TA KNEE LT 4V or >EXAM: XR KNEE LT 4V or >, XR TIB_FIB LT 2V HISTORY: Pain of left knee joint Knee examination Findings: There is narrowing of the medial compartment of the knee, as well as the patellofemoral joint. Osteophyte formation is seen. No acute fracture is identified. No focal lesions are identified. IMPRESSION: Degenerative changes are noted at the knee. No fracture, is seen. If there is high index of suspicion, consider MRI. Left Tibia/Fibula Clinical Indication: Pain of left knee joint Comparison: None FINDINGS: AP and lateral views of the tibia and fibula demonstrate no fracture. There are no osseous lesions. The soft tissues are normal. There are no radiopaque foreign bodies. If there is further concern, recommend follow-up radiographs or bone scan for complete assessment. IMPRESSION: Negative radiographs of the left tibia and fibula. Electronically authenticated by: AMADOU MADDOX Date: 2021-11-18 17:[address] [place], [place] [address]HPV DNA High Riskon 97-63-6333KWC [facility] Memorial HospitalComment on above:Result Comment: This test amplifies and detects DNA of 14 high-risk HPV types associated with cervical cancer and its precursor lesions (HPV types 16,18, 31, 33, 35, 39, 45, 51, 52, 56, 58, 59, 66, and 68). Sensitivity may be affected by specimen collection methods, stage of infection, and the presence of interfering substances. Results should be interpreted in conjunction with other available laboratory and clinical data. A negative high-risk HPV result does not exclude the possibility of future cytologic HSIL or underlying CIN2-3 or cancer. This test is intended for medical purposes only and is not valid for the evaluation of suspected sexual abuse or for other forensic purposes.Performed By: #### HPV #### [employer] [address] [place] [address] Wind Instrument Repairer: Azael Scherer MDHPV Type 16Not DetectedSamaritan Lebanon Community HospitalComment on above:Performed By: #### HPVH #### [facility] CenterThe [facility] [address] [place] [address] Wind Instrument Repairer: Azael Scherer MDHPV Type 18Not DetectedSamaritan Lebanon Community HospitalComment on above:Performed By: #### HPVH #### [facility] [employer] [address] [place] [address] Wind Instrument Repairer: Jacki Lopez High Risk HPVNot DetectedSamaritan Lebanon Community HospitalComment on above:Performed By: #### HPVH #### [facility] [employer] [address] [place] [address] Wind Instrument Repairer: Azael Scherer MDHPV DNA High Riskon 93-77-8418XFJ Sample.THIN PREPBrecksville VA / Crille HospitalComment on above:Performed By: #### HPVH #### [facility] [employer] [address] [place] [address] Wind Instrument Repairer: Elyssa Lopez.CERVIXBrecksville VA / Crille HospitalComment on above:Performed By: #### HPVH #### [facility] [employer] [address] [place] [address] Wind Instrument Repairer: ZOFIA Lopezytologyon 30-37-9986Heomkkcd(NOTE) [id number] bLife CONSULTING PATHOLOGISTS [facility] ANATOMIC PATHOLOGY [address] [place] [phone] GYNECOLOGIC CYTOLOGY REPORT Patient Name: NANCY YOO MR#: [id number] Specimen #[id number] Source: 1: Cervical material, (ThinPrep vial, Imaging-assisted review) Clinical History Postmenopausal Z01.419 Routine technology education teacher exam without abnormal findings Co-Test: ThinPrep Pap with high risk HPV testing INTERPRETATION Cervical material, (ThinPrep vial, Imaging-assisted review): Specimen Adequacy: Satisfactory for evaluation. - Endocervical/transformation zone component present. Descriptive Diagnosis: Negative for intraepithelial lesion or malignancy. Comments: High Risk HPV testing was ordered. Shuttle Spotter: ROBERT Newton(ASCP) Electronically Signed Out eliot/11/14/2018 Procedure/Addendum HPV Procedure Report Date Ordered: 11/13/2018 Status: Signed Out Date Complete: 11/13/2018 By: ROBERT Maloney(ASCP) Date Reported: 11/14/2018 INTERPRETATION Lizeth HPV DNA High Risk HPV Sample Thin Prep (Ref Range) HPV Type 16 Not Detected (Not Detected) HPV Type 18 Not Detected (Not Detected) Other High Risk HPV Not Detected (Not Detected) This test amplifies and detects DNA of 14 high-risk HPV types associated with cervical cancer and its precursor lesions (HPV types 16, 18, 31, 33, 35, 39, 45, 51, 52, 56, 58, 59, 66, and 68). Sensitivity may be affected by specimen collection methods, stage of infection, and the presence of interfering substances. Results should be interpreted in conjunction with other available laboratory and clinical data. A negative high-risk HPV result does not exclude the possibility of future cytologic HSIL or underlying CIN2-3 or cancer. This test is intended for medical purposes only and is not valid for the evaluation of suspected sexual abuse or for other forensic purposes.NormalMerTri-City Medical CenterComment on above:Performed By: #### PPPVP #### [employer] [address] [place] [address] Wind Instrument Repairer: Azael Scherer MD Vital Signs Date TimeVital SignValuePerforming LqwysyrcdLkiqchis72-74-3623 10:39-0400Body mruuys908.86 Gurpreet ARGUELLO Work Phone: [facility]10-21-2025 10:39-0400 Body mass index (BMI) [Ratio]33 kg/m2Estrellita ARGUELLO Work Phone: [facility]10-21-2025 10:39-0400 Body bqjdwqhstla58 [degF]Estrellita Aichholz STITCHER AROUND-C Work Phone: [facility]10-21-2025 10:39-0400 Body arzqqh54.16 kgLisa Aichholz STITCHER AROUND-C Work Phone: [facility]10-21-2025 10:39-0400 Diastolic blood fkkwviix16 mm[Hg]Estrellita Aichholz STITCHER AROUND-C Work Phone: [phone] [place], [place] [address]10-21-2025 10:39-0400 Heart rate81 /minLisa Aichholz STITCHER AROUND-C Work Phone: [phone] [place], [place] [address]13610-21-2025 10:39-0400 Respiratory rate18 /minLisa Aichholz STITCHER AROUND-C Work Phone: [facility]10-21-2025 10:39-0400 SaO2% (BldA) [Mass fraction]96 %Estrellita Aichholz STITCHER AROUND-C Work Phone: [phone] [place], [place] [address]10-21-2025 10:39-0400 Systolic blood mm[Hg]Estrellita Aichholz STITCHER AROUND-C Work Phone: [facility]05-19-2025 14:29-0400 Body mass index (BMI) [Ratio]31.21 kg/m2Lisa Aichholz STITCHER AROUND Work Phone: [facility] HospitalHhkpsvzzfb86-76-4036 14:29-0400Body temperature 98.49 [degF]Estrellita Aichholz STITCHER AROUND Work Phone: [facility] HospitalYgbpjlfrdw38-29-4532 14:29-0400Body xiixfe85.93 kgLisa Aichholz STITCHER AROUND Work Phone: [facility] HospitalLfghfhshdu29-66-6344 14:29-0400Diastolic blood dnnlimlb28 mm[Hg]Estrellita Aichholz STITCHER AROUND Work Phone: [phone]05-19-2025 14:29-0400Heart rate84 /min Estrellita Rashiz STITCHER AROUND Work Phone: [facility] HospitalPnarokefbl48-00-0871 14:29-0400Respiratory rate20 /minLisa Rashiz STITCHER AROUND Work Phone: [facility] HospitalFsumkpkgsc14-16-4030 14:29-7705WmN1% (BldA) [Mass fraction]92 %Estrellita Rashiz STITCHER AROUND Work Phone: [facility] HospitalAaekihhrgd49-84-3796 14:29-0400Systolic blood uwncimcw046 mm[Hg]Estrellita Citlalyholz STITCHER AROUND Work Phone: [phone] [place], [place] [address]Palcvyijil62-43-9595 16:30-0500Body vxukou111.9 Kalaisa Rashiz STITCHER AROUND Work Phone: [phone] [place], [place] [address]Okifyncdto56-99-1140 16:30-0500Body mass index (BMI) [Ratio]30 kg/m2Lisa Rashiz STITCHER AROUND Work Phone: [phone] HospitalHmhhrpdwhu98-47-8358 16:30-0500Body temperature 97.81 [degF]Estrellita Markhamz STITCHER AROUND Work Phone: [facility] HospitalHjmquhxndo70-99-7079 16:30-0500Body euzowr15.03 kgLisa Rojas STITCHER AROUND Work Phone: [facility] HospitalHqxitzxisg59-06-8949 16:30-0500Diastolic blood dxdaggtn63 mm[Hg]Estrellita Rashiz STITCHER AROUND Work Phone: [facility] HospitalRxvlpvjenl54-66-0601 16:30-0500Heart rate82 /min Estrellita Citlalyholz STITCHER AROUND Work Phone: [facility] HospitalBfpphiagsz72-97-4896 16:30-0500Respiratory rate19 /minLisa Citlalyholz STITCHER AROUND Work Phone: [facility] HospitalWqslnyqhyk88-69-3741 16:30-4373UyZ9% (BldA) [Mass fraction]97 %Estrellita Citlalyholz STITCHER AROUND Work Phone: [facility] HospitalUkzgkoiymh35-08-2629 16:30-0500Systolic blood mgxwmwoo185 mm[Hg]Estrellita Rojas STITCHER AROUND Work Phone: [facility] HospitalLttiidjxeu23-50-8547 11:27-0500Body wuwdfy539.[address]11-20-2024 11:27-0500Body mass index (BMI) [Ratio] 30.23 kg/m[address]11-20-2024 11:27-0500Body aafdrt12.[address]11-12-2024 13:07-0500Body usxnkv453.9 cmWilmer Posada CAREGIVERS NON MEDICAL-TACTICAL DECEPTION PLANS OFFICER Work Phone: [facility]11-12-2024 13:07-0500Body mass index (BMI) [Ratio]30.38 kg/z1UyrkwbdWilmer Posada CAREGIVERS NON MEDICAL-TACTICAL DECEPTION PLANS OFFICER Work Phone: [facility]11-12-2024 13:07-0500Body zalvke23.94 kgWilmer Posada CAREGIVERS NON MEDICAL-TACTICAL DECEPTION PLANS OFFICER Work Phone: [facility]11-12-2024 13:07-0500Diastolic blood nbutyjrt68 mm[Hg]Wilmer Posada CAREGIVERS NON MEDICAL-TACTICAL DECEPTION PLANS OFFICER Work Phone: [facility]11-12-2024 13:07-0500Systolic blood moozyilv088 mm[Hg]Wilmer Posada CAREGIVERS NON MEDICAL-TACTICAL DECEPTION PLANS OFFICER Work Phone: [facility]10-09-2024 17:03-0400Body mjsawx614.9 Gurpreet Rojas STITCHER AROUND Work Phone: [facility] HospitalYngglyatdf78-14-0744 17:03-0400Body mass index (BMI) [Ratio]30.5 kg/m2Estrellita Rojas STITCHER AROUND Work Phone: [facility] HospitalXnjvcbbfvx63-50-2821 17:03-0400Body temperature 98.29 [degF]Estrellita Rojas STITCHER AROUND Work Phone: [facility] HospitalYigiqpmgru36-40-5063 17:03-0400Body .21 kgLisa Tamirhholz STITCHER AROUND Work Phone: noRanken Jordan [facility] Specialty HospitalQeccdafdmx76-69-9586 17:03-0400Diastolic blood wcuteina66 mm[Hg]Estrellita Garnetthholz STITCHER AROUND Work Phone: noRanken Jordan [facility] Specialty HospitalWqqaatmjnm41-92-6572 17:03-0400Heart rate76 /min Estrellita Aichholz STITCHER AROUND Work Phone: noRanken Jordan [facility] Specialty HospitalXaabculxgm16-51-7558 17:03-0400Respiratory rate18 /minLisa Tamirhholz STITCHER AROUND Work Phone: noRanken Jordan Pediatric Specialty HospitalUlqfmlkhho98-24-1367 17:03-9052JlR7% (BldA) [Mass fraction]96 %Estrellita Tamirhholz STITCHER AROUND Work Phone: noRanken Jordan Pediatric Specialty HospitalJjlzrwbbrk36-74-3014 17:03-0400Systolic blood uiebbalg222 mm[Hg]Estrellita Tamirhholz STITCHER AROUND Work Phone: [facility] Encounters Encounter DateEncounter TypeCare ProviderFacilityStart: 03-25-2025 End: 89-83-3675dpaqeghtrlKulr J Aichholz STITCHER AROUND-C Work Phone: [facility] ClydeStart: 03-25-2025 End: 02-86-2413Yjqvkxb encounter procedureLisa J Rashiz STITCHER AROUND-C-[facility] [place] Work Phone: Start: 45-01-9073Gbcquvh encounter procedureLisa Tamirhholz STITCHER AROUND-C Work Phone: [facility]tart: 12-11-2024 End: 66-29-8964IklrlyGljb Tamirhholz STITCHER AROUND Work Phone: [facility]WM FMComment on above:Hyperlipidemia, unspecifiedStart: 12-01-2024 End: 20-01-0042BlnkiiHfkt Tamirhholz STITCHER AROUND Work Phone: [facility] FMComment on above:Age-related osteoporosis without current pathological fracture ; OsteoporosisStart: 10-21-2024 End: 07-15-7263pxyresllbqGOMQ AICHHOLZNot AvailableStart: 10-21-2024 End: 22-53-3964Zlypzi outpatient visit 15 Silvano Rojas STITCHER AROUND Work Phone: [facility]WM FMComment on above:Hypothyroidism, unspecified type (CMS/HCC) (Primary Dx); Osteoporosis, postmenopausal (CMS/HCC); Mixed hyperlipidemia (CMS/HCC); Encounter for screening mammogram for malignant neoplasm of breastStart: 09-11-2024 End: 41-48-3266ZqttjsZynq Aichholz STITCHER AROUND Work Phone: [facility]WM FMComment on above:Hypothyroidism, unspecified; Hyperlipidemia, unspecified (CMS/HCC)Start: 09-09-2024 End: 33-30-9055Likyhk OnlyEstrellita Rojas STITCHER AROUND Work Phone: [facility] FMComment on above:Essential hypertension, benign (CMS/HCC) (Primary Dx); Osteoporosis, postmenopausal (CMS/HCC); Hypothyroidism, unspecified type (CMS/HCC); Mixed hyperlipidemia (CMS/HCC)Start: 09-07-2024 End: 97-19-1092WyvfomCyng Aichholz STITCHER AROUND Work Phone: [facility] FMComment on above:Age-related osteoporosis without current pathological fracture (CMS/HCC); Osteoporosis (CMS/HCC)Start: 06-03-2024 End: 24-15-3642Qbwhld outpatient visit 15 Silvano Rojas STITCHER AROUND Work Phone: [facility] CWM FMComment on above:URI, acute (Primary Dx) Start: 06-03-2024 End: 09-14-3166ijssrkwcidTTPANeil Fuller AvailableStart: 05-01-2024 End: 45-87-3412Jrmxhjiokc and management of [facility] Hospitaltart: 04-24-2024 End: 89-69-9773jlfnvtopvyImd Pat Phone Call Provider [address] [place] [address] - Pre AdmitStart: 04-24-2024 End: 93-37-1542eezdlqjcpdMICI J AICHHOLZCity Hospitaltart: 04-16-2024 End: 12-16-2363tpdwowdxkbBMLNAHN A [facility] Start: 04-16-2024 End: 22-25-4784Ijnxhwf encounter proceduregianni Posada CAREGIVERS NON MEDICAL-TACTICAL DECEPTION PLANS OFFICER Work Phone: [facility] Physicians General SurgeryComment on above: Encounter for screening colonoscopy (Primary Dx); Family history of colon cancerStart: 04-09-2024 End: 42-92-4065FdszsyOkqb Aichholz STITCHER AROUND Work Phone: noMS CWM FMComment on above:Hyperlipidemia, unspecified (CMS/HCC)Start: 03-27-2024 End: 70-59-2105NfzrfaWhwu Tamirhholz [employer] Work Phone: noMS CWM FMComment on above:Age-related osteoporosis without current pathological fracture (CMS/HCC); Osteoporosis (CMS/HCC)Start: 03-13-2024 End: 19-04-7892morncqmctvOQWJ AICHHOLZNot AvailableStart: 03-13-2024 End: 01-21-1427Missfj flowsheetLisa Tamirhholz [employer] Work Phone: noms CWM FMStart: 03-13-2024 End: 70-65-0411Syuldq flowsheetLisa Aichholz [employer] Work Phone: NOMS CWM FMStart: 03-13-2024 End: 62-19-6875Iixaznf encounter procedureLisa Tamirhholz [employer] Work Phone: noMS CWM FMComment on above:Encounter for subsequent annual wellness visit (AWV) in Medicare patient (Primary Dx); Colon cancer screening; Hypothyroidism, unspecified type (CMS/HCC)Start: 03-05-2024 End: 73-37-7060XpekwtScul Tamirhholz [employer] Work Phone: NOMS CWM FMComment on above:Hypothyroidism, unspecified (CMS/HCC)Start: 01-22-2024 End: 45-70-1935Etqwfesqx Result EncounterEstrellita Rojas [employer] Work Phone: noms External Department UnsolicitedStart: 01-22-2024 End: 00-80-3353Gcltmayry Result EncounterLisa Rojas [employer] Work Phone: noms External Department UnsolicitedStart: 11-18-2021 End: 36-17-5120taolkegsskAJT ESTRELLITA BOUCHERLIANECorkyFacility:A4Bsogn: 11-12-2018 End: 48-28-7471Rinnbmt encounter procedureGRANGEL [facility] LILIAAd[facility] Procedures DateProcedureProcedure DetailPerforming ClinicianStart: 19-50-9714Vdofjyihunv Estrellita Boucherjacob [employer] Work Phone: Start: 87-62-3820BV TOMOSYNTHESIS SCREENING BILisa Crystal [employer] Work Phone: Start: 11-52-2827AgaauazesmwJcdt Aichholz [employer] Work Phone: Start: 48-97-7915Iwa, dna, amp probeGRANGEL MEDICAL CENTER LILIAStart: 54-94-6931Dewx cervical/vaginal req interp physicianST. [facility] LILIA Plan of Treatment DateCare ActivityDetailAuthorStart: 65-54-5458Nkqeososy for malignant neoplasm of colonNOMS HealthcareStart: 58-24-7053Jmlgffeisbsc Vaccine: 65+ Years (2 of 2 - PCV20 or PCV21)Pneumococcal Vaccine: 65+ Years (2 of 2 - PCV20 or PCV21)NOMS HealthcareComment on above:Postponed from 03/21/2020 (Patient Refused)Start: 92-67-7799Jyhozznfwfkk Vaccine: 65+ Years (2 of 2 - PPSV23 or PCV20)Pneumococcal Vaccine: 65+ Years (2 of 2 - PPSV23 or PCV20)NOMS HealthcareComment on above: Postponed from 03/21/2020 (Patient Refused)Start: 07-18-5832Qgwqbzfeipxy Vaccine: 65+ Years (2 of 2 - PPSV23)Pneumococcal Vaccine: 65+ Years (2 of 2 - PPSV23)NOMS HealthcareComment on above:Postponed from 03/21/2020 (Patient Refused)Start: 44-73-2099Azjwd BMI ScreeningAdult BMI ScreeningProFostoria City Hospital SystemStart: 73-88-1287Mfkyadf ScreeningTobacco ScreeningProFostoria City Hospital System Start: 03-18-2025 End: 00-06-8924Yazolgp encounter uhcabysgn72/14/2025 10:30 AM EDT Office Visit [facility] [address] [place] [address] Estrellita Rojas, ZAYRA [address] [place] [address] [facility] FMStart: 10-09-2025Medicare Annual Wellness (AWV) Medicare Annual Wellness (AWV)NOMS HealthcareStart: 02-64-4752Qobolnybj vaccinationInfluenza Vaccine (#1)NOMS HealthcareStart: 01-21-2025 End: 64-44-6635SSZ Skeletal system Views for bone densityDEXA bone density Imaging Routine Osteoporosis, postmenopausal ([facility]) Expected: 01/21/2025 (Approximate), Expires: 10/21/2025NOPA HealthcareComment on above:Expected: 01/21/2025 (Approximate), Expires: 10/21/2025Start: 01-21-2025 End: 45-49-2385IH Breast - bilateral ScreeningBilateral screening mammogram Imaging Routine Encounter for screening mammogram for malignant neoplasm of breast Expected: 01/21/2025 (Approximate), Expires: 12/21/2025[facility] Work Phone: Comment on above:Expected: 01/21/2025 (Approximate), Expires: 12/21/2025Start: 62-77-0517Xaryzvpko for malignant neoplasm of breast MammogramNOMS HealthcareStart: 10-21-2024 End: 11-12-7423Bpuvenc encounter rvpvndfak24/19/2025 2:20 PM EDT Office Visit [facility] [address] [place] [address] Estrellita Rojas, [employer] AROUND [address] [place] [address] NOMTommy CHURCH FMStart: 09-11-2024 End: 14-00-7000Fttifiv encounter /09/2025 3:40 PM EDT Office Visit [facility] [address] [place] [address] Estrellita Rojas, [employer] [address] [place] [address] NOMS [facility] FMStart: 09-09-2024 End: 62-64-2160BYQ W Auto Differential panel - BloodCBC and differential Lab Routine Hypothyroidism, unspecified type (CMS/HCC) Expected: 09/09/2024 (Ap proximate), Expires: 09/09/2025[facility] HealthcareComment on above:Expected: 09/09/2024 (Approximate), Expires: 09/09/2025Start: 09-09-2024 End: 82-96-6812Jdvvrfitexbhm metabolic 2000 panel - Serum or PlasmaComprehensive metabolic panel Lab Routine Essential hypertension, benign (CMS/HCC) Osteoporosis, postmenopausal (CMS/HCC) Expected: 09/09/2024 (Approximate), Expires: 09/09/2025[facility] Work Phone: Comment on above:Expected: 09/09/2024 (Approximate), Expires: 09/09/2025Start: 09-09-2024 End: 90-76-9625Nxnsq 1996 panel - Serum or PlasmaLipid panel Lab Routine Mixed hyperlipidemia (CMS/HCC) Expected: 09/09/2024 (Approximate), Expires:09/09/2025 NOM HealthcareComment on above:Expected: 09/09/2024 (Approximate), Expires: 09/09/2025Start: 09-09-2024 End: 29-28-5867Xjvdcazhhbd [Units/volume] in Serum or PlasmaTSH Lab Routine Hypothyroidism, unspecified type (CMS/HCC) Expected: 09/09/2024 (Approximate), Expires: 09/09/2025[facility] HealthcareComment on above:Expected: 09/09/2024 (Approximate), Expires: 09/09/2025Start: 09-09-2024 End: 41-73-6592Oyvkamnxx (T4) free [Mass/volume] in Serum or PlasmaT4, free Lab Routine Hypothyroidism, unspecified type (CMS/HCC) Expected: 09/09/2024 (Approximate),Expires: 09/09/2025[facility] HealthcareComment on above:Expected: 09/09/2024 (Approximate), Expires: 09/09/2025Start: 09-09-2024 End: 15-40-7914Hweaaylosc complete panel - UrineUrinalysis with reflex microscopic (clean catch) Lab Routine Essential hypertension, benign (CMS/HCC) Expected: 09/09/2024 (Approximate), Expires: 09/09/2025[facility] HealthcareComment on above:Expected: 09/09/2024 (Approximate), Expires: 09/09/2025Start: 05-15-2024 End: 63-88-5934Ajjjdqfju to same day surgery jovvem0005/15/2024 8:30 AM EST - 05/15/2024 9:00 AM EST Surgery [facility] - Surgery [address] [place] [address] Tara King MD [address] [place] [address] COLONOSCOPY DIAGNOSTIC / SCREENING [15168 (CPT )][facility] CenterComment on above:COLONOSCOPY DIAGNOSTIC / SCREENING [00436 (CPT )]Start: 05-15-2024 End: 08-00-8032Eskplztxxdy flx dx w/collj spec when pfrmdCOLONOSCOPY DIAGNOSTIC / SCREENING Screen for colon cancer 05/15/2024 8:30 AM ESTFRPHELPS HEALTH SURGERYStart: 63-30-4770Hlvdkojksi hospital visit by gvmraklzx45/11/2024 8:[address] [facility] Hospital Encounter [facility] - Surgery [address] [place] [address] Tara King MD [address] [place] [address] [facility] SurgeryStart: 05-08-2024 End: 50-07-5583bhjmfzuxua69/04/2024 2:30 PM EST Support Visit [facility] - Pre Admit [address] [place] [address] [facility] - Pre AdmitStart: 61-44-6218Pcxrqrnpf vaccinationInfluenza Vaccine (#1)NOMS HealthcareComment on above:Postponed from 02/04/2024 (Patient Does Not Have Time)Start: 05-01-2024 End: 10-21-7312Sbgxphawv to same day surgery [place]3705/01/2024 8:[address] [facility] - 05/01/2024 8:[address] [facility] Surgery [facility] - Surgery [address] [facility] [place] [address] Tara King MD [address] [place] [address] COLONOSCOPY DIAGNOSTIC / SCREENING [05738 (CPT )][facility] CenterComment on above:COLONOSCOPY DIAGNOSTIC / SCREENING [51413 (CPT )]Start: 05-01-2024 End: 99-64-2277Ddwkyuiypah flx dx w/collj spec when pfrmdCOLONOSCOPY DIAGNOSTIC / SCREENING Screen for colon cancer 05/01/2024 8:[address] [facility]ENTERFRPHELPS HEALTH SURGERYStart: 81-17-6612Tlwhnibgdy hospital visit by pyjqncfjh34/27/2024 8:00 AM EST Hospital Encounter [facility] Surgery [address] [place] [address] Tara King MD [address] [facility] [place] [address] [facility] SurgeryStart: 03-13-2024 End: 19-50-7107Quqscxz encounter procedureNOMS CWM FMComment on above:Arrived Start: 10-05-2024Medicare Annual Wellness (AWV)Medicare Annual Wellness (AWV) [facility] HealthcareStart: 44-22-6415Tmhmbfywx for malignant neoplasm of colonNOMS HealthcareStart: 72-93-3666ZYFUW-19 Vaccine ( season)COVID-19 Vaccine ( season)[facility] SystemStart: 28-53-5954Gtqkpsaza vaccinationNOPA HealthcareStart: 45-98-7487Cjuxzcbupnqx Vaccine: 65+ Years (2 of 2 - PPSV23 or PCV20)Pneumococcal Vaccine: 65+ Years (2 of 2 - PPSV23 or PCV20) [facility] HealthcareStart: 06-10-2020Medicare Annual Wellness (AWV)Medicare Annual Wellness (AWV)[facility] HealthcareStart: 55-46-4785Njjr Risk ScreeningFall Risk ScreeningCleveland Clinic Foundation SystemStart: 89-56-3553Tnelyqobvqqhig of varicella zoster vaccineZoster (Shingles) Vaccine (1 of 2)[facility] [employer] SystemStart: 84-93-2494ZZvB,Tdap and Td Vaccines (1 - Tdap)DTaP,Tdap and Td Vaccines (1 - Tdap)[facility] SystemStart: 98-39-7533Tqbpj BMI Follow Up PlanAdult BMI Follow Up PlanProFostoria City Hospital SystemStart: 07-54-4222Vgfeuckhvd Screening Depression ScreeningCleveland Clinic Foundation SystemStart: 20-93-3386Kfohluvic for malignant neoplasm of colonNOMS Healthcare End: 68-79-6186VvdexnyuddhZqdqgstfvgu GI Routine Encounter for screening colonoscopy 1 Occurrences starting 04/16/2024 until 04/16/2025[facility] Work Phone: Comment on above:1 Occurrences starting 04/16/2024 until 04/16/2025DXA Skeletal system.axial Views for bone densityMiddletown HospitalMG Breast - bilateral ScreeningMiddletown Hospital Immunizations Immunization DateImmunizationNotesCare YjvozffuOfvcclso22-92-0632gdderepli, high dose seasonal, preservative-freeLisa Aichholz [employer] Work Phone: [facility] HospitalYbsoezdmwp54-80-9509dcfdlj vaccine recombinant Estrellita Aichholz [employer] Work Phone: [facility] HospitalFmlozmwcln17-11-6168ssqtgwgdt virus vaccine, unspecified formulationLisa Aichholz [employer] Work Phone: [facility] HospitalYasbeuhwrv79-10-8978UCW, recombinant, protein subunit RSVpreF, adjuvant reconstitu, 120mcg/0.5mL, PF (Arexvy)Estrellita Aichholz [employer] Work Phone: [facility] HospitalEiiqhrrhuj76-30-4789Trqekksmv, Seasonal, Quadrivalent, AdjuvantedLisa Aichholz [employer]ITCHER AROUND Work Phone: noRanken Jordan Pediatric Specialty HospitalEfsgwrvhfb76-28-4194TSRX-FJM-7 (COVID-19) vaccine, mRNA, spike protein, LNP, PF, tigre-sucrose, 30 mcg/0.3 mLLisa Aichholz [employer] Work Phone: [facility] HospitalCpcjymfygt07-15-4159ujdkwvwyt virus vaccine, unspecified formulationLisa Aichholz [employer] Work Phone: [facility] HospitalMlmjgivzup42-87-3310Sqkjvpvfa, Seasonal, Quadrivalent, AdjuvantedLisa Aichholz [employer] Work Phone: [facility] HospitalZjefdwngau84-52-8945WKXA-MVK-3 (COVID-19) vaccine, mRNA, spike protein, LNP, bivalent, preservative free, 30 mcg/0.3 mL dose, tigre-sucrose formulationLisa Aichholz [employer] Work Phone: [phone] [place], [place] [address]Haqfdqcwdg72-97-5894Nhzjqm Purple Cap SARS-CoV-2 VaccinationLisa Aichholz [employer] Work Phone: [facility] HospitalJgdfergfaw41-94-4692Ddobxassp, Seasonal, Quadrivalent, AdjuvantedLisa Aichholz [employer] Work Phone: [facility] HospitalOxkurcqmik74-48-1691Kvqzkfd SARS-CoV-2 VaccinationLisa Aichholz [employer] Work Phone: [phone] [place], [place] [address]Tuuwtrotrf87-54-9537Xloczwi SARS-CoV-2 VaccinationLisa Aichholz [employer] Work Phone: [phone] [place], [place] [address]Irktrkljro91-36-2528Yloamdlcw, Seasonal, Quadrivalent, AdjuvantedLisa Aichholz [employer] Work Phone: [phone] [place], [place] [address]Jjekfuqtxl34-33-6634hvuqlzxbt, high dose seasonal, preservative-freeLisa Aichholz [employer] Work Phone: [phone] [place], [place] [address]Rfvkvflzmi00-62-7937rafzhqypqbxl conjugate vaccine, 13 valentLisa Aichholz [employer] Work Phone: [phone] [place] [address] Payers DatePayer CategoryPayerPolicy [id number] Health InsuranceAARP [id number] AARP [id number] 2022- [address] [place] [address] [id number] 2019Medicare [id number] Care Other (unspecified)[id number] [id number] [id number] [id number] 1954 [id number] 2.16.840.1.030422.3.57[id number] 2.16.840.1.859905.3.57[id number] 2..840.1.892406.3.57[id number] 2.840.1.758949.3.57[id number] 2..840.1.272016.3.57[id number] 2.16.840.1.343806.3.57[id number] 2.840.1.138958.3.57[id number] 2.840.1.338070.3.579.2.1259 Social History DateTypeDetailFacilityStart: 09-07-2023 End: 30-26-7697Bspmfwe smoking status NHISNever smoked tobaccoNOMS Healthcare Start: 09-07-2023 End: 07-00-6781Dhorrhv use and exposureSmokeless tobacco non-userNOMS Healthcare Start: 09-07-2023 End: 36-61-9509Lwsthbdab beverage intakeLifetime non-drinker (finding)[facility] HealthcareStart: 09-07-2023 End: 85-23-7896Visexhe of Social functionNOPA HealthcareStart: 09-07-2023 End: 22-24-5130Cyxztep use panelCACHE VALLEY [facility] HealthcareStart: 26-41-4269Pdhafeu Comment caffine: soda 1-2 dailyNOPA HealthcareStart: 23-85-5960Nkd assigned at birthNot on fileNOPA HealthcareStart: 91-45-4411Jwo often do you need to have someone help you when you read instructions, pamphlets, or other written material from your doctor or pharmacy [SILS]NeverNOMS HealthcareDo you belong to any clubs or organizations such as congregation groups, unions, fraternal or athletic groups, or school groups?NoNOMS HealthcareAre you now , , , , never or living with a partner?WidowedCACHE VALLEY HOSPITAL HealthcareHow often to you have a drink containing alcohol?NeverNOMS HealthcareDo you feel stress - tense, restless, nervous, or anxious, or unable to sleep at night because yourmind is troubled all the time - these days [OSQ]Not at allNOPA Healthcare(I/We) worried whether (my/our) food would run out before (I/we) got money to buy more.Never trueCACHE VALLEY [facility]OSPITAL HealthcareStart: 04-16-2024 End: 72-34-9896Vgftogefn beverage intakeEx-drinker (finding)[facility] SystemStart: 73-96-6837MpkNzgstl (finding)[facility] SystemTobacc smoking status NHISUnknown if ever smokedWadsworth-Rittman [facility] Work Phone: Start: 49-32-3586Oxg Assigned At BirthFeSt. Anthony's Hospital Functional Status UhrbXeiemoyhpmHcogkvDhlcxcea60-23-9219Byyiffecp depression scale (GDS).short version [facility] HospitalQilqrjtvgh57-57-8865Rsqsulf Health Questionnaire 2 item (PHQ- 2) [Reported][facility] HospitalXfbtujyfjo75-17-4778Dqvcx score [AUDIT-C]0 03/06/2024 10:23 PM EDT Luis Miguel HoldenWright Memorial HospitalEaucntbnei38-09-7155Nqa often do you have a drink containing alcohol?Never 03/06/2024 10:23 PM EDT Mychart, Generic NeverWright Memorial HospitalAszhculgms73-04-7780Pysuknnden statusPatient does not drink 03/06/2024 10:23 PM EDT Mychart, Generic Patient does not drinkWright Memorial HospitalQodxemxwvh24-01-7328Kjh often do you have 6 or more drinks on 1 occasion?Never 03/06/2024 10:23 PM EDT Chentehart, Generic [facility] Clinical Notes 03-13-2024 to 10-21-2024 Note Date & ZogiXsplNklbtjrk62-33-8443 History of Present illness Narrative* Estrellita Rojas, STITCHER AROUND - 10/21/2024 2:20 PM EDT Images from the original note were not included. Nancy Yoo is a 69 y.o. female presents with chief complaint of Hypothyroidism HPI: Thyroid Problem Presents for follow-up visit. Symptoms include weight gain. Patient reports no anxiety, cold intolerance, constipation, diarrhea, dry skin, fatigue, hair loss, palpitations, tremors, visual change orweight loss. The symptoms have been stable. SUBJECTIVE: MEDICATIONS: Current Outpatient Medications Medication Instructions alendronate (FOSAMAX) 70 mg, Oral, Every 7 days levothyroxine (SYNTHROID, LEVOXYL) 75 mcg, Oral, Daily simvastatin (ZOCOR) 20 mg, Oral, Nightly ALLERGIES: Allergies Allergen Reactions Codeine REVIEW OF SYMPTOMS: Review of Systems Constitutional: Positive for weight gain. Negative for appetite change, chills, fatigue, fever and weight loss. HENT: Negative for congestion, ear pain and sore throat. Eyes: Negative for pain, discharge, redness and visual disturbance. Respiratory: Negative for cough, shortness of breath and wheezing. Cardiovascular: Negative for chest pain, palpitations and leg swelling. Gastrointestinal: Negative for abdominal pain, blood in stool, constipation, diarrhea, nausea and vomiting. Genitourinary: Negative for difficulty urinating, dysuria and frequency. Musculoskeletal: Negative for arthralgias, back pain, joint swelling and myalgias. Skin: Negative for rash and wound. Neurological: Negative for dizziness, tremors, seizures, syncope and headaches. Psychiatric/Behavioral: Negative for behavioral problems, self-injury and suicidal ideas. The patient is not nervous/anxious. Hematological: Does not bruise/bleed easily. Endocrine: Negative for cold intolerance, polydipsia, polyphagia and polyuria. Allergic/Immunologic: Negative for environmental allergies and food allergies. PAST MEDICAL HISTORY Past Medical History: Diagnosis Date Allergic rhinitis Hyperlipidemia (CMS/HCC) Hypertension (CMS/HCC) Hypertriglyceridemia (CMS/HCC) Hypothyroidism (CMS/HCC) OA (osteoarthritis) of knee Osteoporosis (CMS/HCC) Pain and swelling of knee, left Past Surgical History: Procedure Laterality Date BUNIONECTOMY Bilateral DILATION AND CURETTAGE OF UTERUS 1995 family history includes Cancer in her father; Parkinson's disease in her mother. OBJECTIVE: Visit Vitals BP 144/78 (BP Location: Left arm, Patient Position: Sitting, BP Cuff Size: Adult long) Pulse 84 Temp 98.5 F (Temporal) Resp 20 Wt 165 lb 3.2 oz SpO2 92% BMI 31.21 kg/m Smoking Status Never BSA 1.8 m Physical Exam Vitals and nursing note reviewed. Constitutional: General: She is not in acute distress. Appearance: Normal appearance. HENT: Head: Normocephalic and atraumatic. Right Ear: External ear normal. Left Ear: External ear normal. Nose: Nose normal. Mouth/Throat: Mouth: Mucous membranes are moist. Eyes: Extraocular Movements: Extraocular movements intact. Conjunctiva/sclera: Conjunctivae normal. Neck: Vascular: No carotid bruit. Cardiovascular: Rate and Rhythm: Normal rate and regular rhythm. Pulses: Normal pulses. Heart sounds: Normal heart sounds. Pulmonary: Effort: Pulmonary effort is normal. Breath sounds: Normal breath sounds. No wheezing or rhonchi. Abdominal: General: Bowel sounds are normal. There is no distension. Palpations: Abdomen is soft. There is no mass. Tenderness: There is no abdominal tenderness. Musculoskeletal: General: Normal range of motion. Cervical back: Normal range of motion and neck supple. Right lower leg: No edema. Left lower leg: No edema. Skin: General: Skin is warm and dry. Capillary Refill: Capillary refill takes 2 to 3 seconds. Findings: No rash. Neurological: General: No focal deficit present. Mental Status: She is alert and oriented to person, place, and time. Psychiatric: Mood and Affect: Mood normal. Behavior: Behavior normal. Thought Content: Thought content normal. Judgment: Judgment normal. ASSESSMENT AND PLAN: Follow up in about 5 months (around 03/23/2025) for Recheck. Problem List Items Addressed This Visit Hypothyroidism, unspecified - Primary On levothyroxine Check labs yearly and prn dose changes, or changes in sxs Mixed hyperlipidemia (CMS/HCC) On statin therapy Check labs yearly and prn dose changes Discussed her lab results, no change in dose Try to cut back on carb consumption Osteoporosis, postmenopausal (CMS/HCC) DEXA: 11/30/22: -1.1 osteopenia Takes alendronate weekly Due for DEXA 11/2024 Relevant Orders DEXA bone density Encounter for screening mammogram for malignant neoplasm of breast Relevant Orders Bilateral screening mammogram * Estrellita Rojas NP - 10/21/2024 7:43 AM EDTAssociated Problem(s): Osteoporosis, postmenopausal (CMS/HCC) DEXA: 11/30/22: -1.1 osteopenia Takes alendronate weekly Due for DEXA 11/2024 * Estrellita Rojas NP - 10/21/2024 7:43 AM EDTAssociated Problem(s): Mixed hyperlipidemia (CMS/HCC) On statin therapy Check labs yearly and prn dose changes Discussed her lab results, no change in dose Try to cut back on carb consumption * Estrellita Rojas NP - 10/21/2024 7:42 AM EDTAssociated Problem(s): Hypothyroidism, unspecified On levothyroxine Check labs yearly and prn dose changes, or changes in sxs documented in this encounterWright Memorial HospitalRzmrecetgc07-89-8710 History of Present illness Narrative* Estrellita Rojas NP - 06/03/2024 5:06 PM ESTAssociated Problem(s): URI, acute Likely viral Recommend OTC treatment of symptoms, [...] 06/06/24 she is not better call office * MARCUS LINDA - 06/03/2024 4:15 PM EST Pt states she had a stuffed head and sore throat on the and it had progressed to a barking cough. She coughs up clear mucus and half of the time she can not get it out. She takes viccs, robitussin, and cough drops. Runny nose. * Estrellita Rojas NP - 06/03/2024 4:15 PM EST Images from the original note were not included. Nancy Yoo is a 69 y.o. female presents with chief complaint of Cough HPI: Pt states she had a stuffed head and sore throat on the and it had progressed to a barking cough. She coughs up clear mucus and half of the time she can not get it out. She takes viccs, robitussin, and cough drops. Runny nose. Cough This is a new problem. The current episode started in the past 7 days. The problem has been waxing and waning. The problem occurs constantly. The cough is Productive of sputum (clear). Associated symptoms include nasal congestion, postnasal drip and rhinorrhea. Pertinent negatives include no chest pain, chills, ear congestion, ear pain, fever, headaches, hemoptysis, myalgias, rash, sore throat, shortness of breath, sweats, weight loss or wheezing. The symptoms are aggravated by lying down. She has tried OTC cough suppressant for the symptoms. The treatment provided mild relief. There is no history of asthma, bronchiectasis, bronchitis, COPD, emphysema, environmental allergies or pneumonia. SUBJECTIVE: MEDICATIONS: Current Outpatient Medications Medication Instructions alendronate (FOSAMAX) 70 mg, Oral, Every 7 days levothyroxine (SYNTHROID, LEVOXYL) 75 mcg, Oral, Daily simvastatin (ZOCOR) 20 mg, Oral, Nightly ALLERGIES: Allergies Allergen Reactions Codeine REVIEW OF SYMPTOMS: Review of Systems Constitutional: Negative for chills, fever and weight loss. HENT: Positive for postnasal drip and rhinorrhea. Negative for ear pain and sore throat. Respiratory: Positive for cough. Negative for hemoptysis, shortness of breath and wheezing. Cardiovascular: Negative for chest pain. Gastrointestinal: Negative. Genitourinary: Negative. Musculoskeletal: Negative for myalgias. Skin: Negative for rash. Neurological: Negative. Negative for headaches. Psychiatric/Behavioral: Negative. Hematological: Negative. Allergic/Immunologic: Negative for environmental allergies. PAST MEDICAL HISTORY Past Medical History: Diagnosis Date Allergic rhinitis Hyperlipidemia (CMS/HCC) Hypertension (CMS/HCC) Hypertriglyceridemia (CMS/HCC) Hypothyroidism (CMS/HCC) OA (osteoarthritis) of knee Osteoporosis (CMS/HCC) Pain and swelling of knee, left Past Surgical History: Procedure Laterality Date BUNIONECTOMY Bilateral DILATION AND CURETTAGE OF UTERUS 1995 family history includes Cancer in her father; Parkinson's disease in her mother. OBJECTIVE: Visit Vitals BP 120/74 (BP Location: Left arm, Patient Position: Sitting, BP Cuff Size: Adult long) Pulse 82 Temp 97.8 F (Temporal) Resp 19 Ht 5' 1 Wt 158 lb 12.8 oz SpO2 97% BMI 30.00 kg/m Smoking Status Never BSA 1.76 m Physical Exam Vitals and nursing note reviewed. Constitutional: General: She is not in acute distress. Appearance: Normal appearance. She is not ill-appearing or diaphoretic. HENT: Head: Normocephalic and atraumatic. Right Ear: Tympanic membrane, ear canal and external ear normal. Left Ear: Tympanic membrane, ear canal and external ear normal. Nose: Congestion and rhinorrhea (clear) present. Mouth/Throat: Mouth: Mucous membranes are moist. Pharynx: Oropharynx is clear. No oropharyngeal exudate or posterior oropharyngeal erythema. Comments: +PND Eyes: Extraocular Movements: Extraocular movements intact. Conjunctiva/sclera: Conjunctivae normal. Neck: Vascular: No carotid bruit. Cardiovascular: Rate and Rhythm: Normal rate and regular rhythm. Pulses: Normal pulses. Heart sounds: Normal heart sounds. Pulmonary: Effort: Pulmonary effort is normal. Breath sounds: Normal breath sounds. No wheezing or rales. Comments: Reactive cough Abdominal: General: Bowel sounds are normal. There is no distension. Palpations: Abdomen is soft. There is no mass. Tenderness: There is no abdominal tenderness. Musculoskeletal: General: Normal range of motion. Cervical back: Normal range of motion and neck supple. Right lower leg: No edema. Left lower leg: No edema. Lymphadenopathy: Cervical: No cervical adenopathy. Skin: General: Skin is warm and dry. Capillary Refill: Capillary refill takes 2 to 3 seconds. Findings: No rash. Neurological: General: No focal deficit present. Mental Status: She is alert and oriented to person, place, and time. Psychiatric: Mood and Affect: Mood normal. Behavior: Behavior normal. Thought Content: Thought content normal. Judgment: Judgment normal. ASSESSMENT AND PLAN: No follow-ups on file. Problem List Items Addressed This Visit URI, acute - Primary Likely viral Recommend OTC treatment of symptoms, [...] 06/06/24 she is not better call office Relevant Medications benzonatate (Tessalon) 200 MG capsule documented in this encounterWright Memorial [id number] Instructions* Patient Instructions* Estrellita Rojas NP - 06/03/2024 4:15 PM EST Fluids, rest Would recommend allergy nasal spray such as flonase over the counter, use as directed Will add cough medication: tessalon pearls (benzonate) 200mg every 8 hours as needed for cough Follow up if not better If no better with cough by 06/06/24 call office documented in this encounterWright Memorial [id number] Miscellaneous Notes* Perioperative Nursing Note - Latonia Townsend RN - 04/24/2024 4:10 PM EST Preoperative Education Checklist- General Surgery date: 05/01/24 Surgery time: 0800 Arrival time: 0610 1. Bring a photo ID and your insurance card with you the day of surgery. You will check in at the main lobby of the [facility]- registration desk is straight ahead as soon as you walk in. Tell them you are here for surgery. 2. If you have a Living Will/Durable Power of Occupational Therapy Program Director for Health Care that is not on file here, please bring a copy the day of surgery. 3. Please shower/bathe the night before surgery with the provided soap or wipes. Do not shower the morning of surgery- you will do use wipes when you arrive here at the hospital before getting into your surgical gown. Do not shave the area of your procedure for 2 days prior to your surgery. 4. NO powder, lotion, perfume/cologne, aftershave, make-up, deodorant, or hair products after you have bathed. 5. NO nail cuban/acrylic on at least one finger. If you are having a hand, wrist or foot surgery then all nail cuban and artificial/acrylic nails must be removed from that hand or foot. 6. Avoid ALL Aspirin and non-steroidal anti-inflammatory drugs and certain vitamins (Ibuprofen, Advil, Aleve, Excedrin, Meloxicam, Celebrex, fish/krill oil, etc.) for 7 days prior to surgery as instructed by your surgeon and/or your prescribing doctor. Tylenol IS ALLOWED. If you are on Ticlid, Xarelto, Eliquis, Pradaxa, Plavix or Coumadin, please check with your prescribing doctor for instructions for when to stop them. 7. If you use an inhaler, continue to use it routinely. 8. Nothing to eat or drink (not even water, gum, mints, or hard candy!) AFTER midnight prior to your surgery. 9. Take only medications that you are instructed to on the morning of surgery with a TINY SIP OF WATER. 10. Choose a responsible adult that will be able to drive you home when you are discharged from your hospital stay for your surgery and can stay with you in your home for 24 hours after your procedure. You must NOT drive any vehicle or operate any machinery for 24 hours after surgery. 11. When you dress for your appointment, please wear loose fitting clothing that is appropriate to accommodate your surgical area procedure. BRING WITH YOU ANY DEVICES YOU MAY NEED: CHRISTINE hose, ice machine, sling/swath, brace or special shoe, oversized zip-up or button up shirt, CPAP machine if staying overnight. 12. Do NOT wear jewelry, watches, or any piercings or metal for surgery- leave these valuables and money at home. 13. Do NOT wear contact lenses for surgery- glasses are okay if needed. 14. The anesthesiologist will talk with you the day of surgery and will ask you to sign a Consent Form. 15. Refrain from smoking or any type of tobacco use for at least 8 hours and marijuana for 24 hoursprior to arrival for your surgery. 16. If a GREEN BLOOD band is given to you, please bring it with you for the day of surgery. 17. Notify your surgeon if you develop any illness before your surgery. 18. If you are staying overnight, please DO NOT BRING your home medications with you. 19. If you have any questions prior to surgery, please call the Preadmission Testing office at [phone], Mon.-Fri. 7 a.m.-3 p.m. Leave a voicemail if needed. Pre-Surgery Instructions: Medication Instructions alendronate (FOSAMAX) 70 mg tablet Stop taking 0 days prior to procedure calcium citrate-vitamin D3 (CITRACAL MAXIMUM) 315-250 mg-units per tablet Stop taking 0 days prior to procedure levothyroxine (SYNTHROID, LEVOTHROID) 75 MCG tablet Take morning of procedure MULTIVITAMIN ORAL Stop taking 0 days prior to procedure simvastatin (ZOCOR) 20 mg tablet Stop taking 0 days prior to procedure sod sulf-pot chloride-mag sulf 1.479-0.188- 0.225 gram tablet Stop taking 0 days prior to procedure documented in [facility] Nurse Note* Perioperative Nursing Note - Latonia Townsend RN - 04/24/2024 4:10 PM EST Preoperative Education Checklist- General Surgery date: 05/01/24 Surgery time: 0800 Arrival time: 0610 1. Bring a photo ID and your insurance card with you the day of surgery. You will check in at the main lobby of the [facility]- registration desk is straight ahead as soon as you walk in. Tell them you are here for surgery. 2. If you have a Living Will/Durable Power of Occupational Therapy Program Director for Health Care that is not on file here, please bring a copy the day of surgery. 3. Please shower/bathe the night before surgery with the provided soap or wipes. Do not shower the morning of surgery- you will do use wipes when you arrive here at the hospital before getting into your surgical gown. Do not shave the area of your procedure for 2 days prior to your surgery. 4. NO powder, lotion, perfume/cologne, aftershave, make-up, deodorant, or hair products after you have bathed. 5. NO nail cuban/acrylic on at least one finger. If you are having a hand, wrist or foot surgery then all nail cuban and artificial/acrylic nails must be removed from that hand or foot. 6. Avoid ALL Aspirin and non-steroidal anti-inflammatory drugs and certain vitamins (Ibuprofen, Advil, Aleve, Excedrin, Meloxicam, Celebrex, fish/krill oil, etc.) for 7 days prior to surgery as instructed by your surgeon and/or your prescribing doctor. Tylenol IS ALLOWED. If you are on Ticlid, Xarelto, Eliquis, Pradaxa, Plavix or Coumadin, please check with your prescribing doctor for instructions for when to stop them. 7. If you use an inhaler, continue to use it routinely. 8. Nothing to eat or drink (not even water, gum, mints, or hard candy!) AFTER midnight prior to your surgery. 9. Take only medications that you are instructed to on the morning of surgery with a TINY SIP OF WATER. 10. Choose a responsible adult that will be able to drive you home when you are discharged from your hospital stay for your surgery and can stay with you in your home for 24 hours after your procedure. You must NOT drive any vehicle or operate any machinery for 24 hours after surgery. 11. When you dress for your appointment, please wear loose fitting clothing that is appropriate to accommodate your surgical area procedure. BRING WITH YOU ANY DEVICES YOU MAY NEED: CHRISTINE hose, ice machine, sling/swath, brace or special shoe, oversized zip-up or button up shirt, CPAP machine if staying overnight. 12. Do NOT wear jewelry, watches, or any piercings or metal for surgery- leave these valuables and money at home. 13. Do NOT wear contact lenses for surgery- glasses are okay if needed. 14. The anesthesiologist will talk with you the day of surgery and will ask you to sign a Consent Form. 15. Refrain from smoking or any type of tobacco use for at least 8 hours and marijuana for 24 hoursprior to arrival for your surgery. 16. If a GREEN BLOOD band is given to you, please bring it with you for the day of surgery. 17. Notify your surgeon if you develop any illness before your surgery. 18. If you are staying overnight, please DO NOT BRING your home medications with you. 19. If you have any questions prior to surgery, please call the Preadmission Testing office at [phone], Mon.-Fri. 7 a.m.-3 p.m. Leave a voicemail if needed. Pre-Surgery Instructions: Medication Instructions alendronate (FOSAMAX) 70 mg tablet Stop taking 0 days prior to procedure calcium citrate-vitamin D3 (CITRACAL MAXIMUM) 315-250 mg-units per tablet Stop taking 0 days prior to procedure levothyroxine (SYNTHROID, LEVOTHROID) 75 MCG tablet Take morning of procedure MULTIVITAMIN ORAL Stop taking 0 days prior to procedure simvastatin (ZOCOR) 20 mg tablet Stop taking 0 days prior to procedure sod sulf-pot chloride-mag sulf 1.479-0.188- 0.225 gram tablet Stop taking 0 days prior to procedure [facility]11[facility] History of Present illness Narrative* Wilmer Jeff Posada, [employer] NON MEDICAL-TACTICAL DECEPTION PLANS OFFICER - 04/16/2024 1:00 PM EST Images from the original note were not included. Chief Complaint: Colon cancer screening History of Present Illness Nancy Yoo is a 69 y.o. female who presents to the office for colon cancer screening. This is herfirst colonoscopy. She has completed Cologuard in the past. She denies diarrhea, constipation, abdominal pain, melena, unexplained weight loss. She reports 1 episode of bright red blood per rectum a few weeks ago that occurred after she was doing an increased amount of heavy lifting. She denies anyrectal bleeding prior to of after this. There is a family history of colon cancer in her brother. Review of Systems Constitutional: Negative for fever and unexpected weight change. HENT: Negative for trouble swallowing. Respiratory: Negative for shortness of breath. Cardiovascular: Negative for chest pain. Gastrointestinal: Negative for nausea, vomiting, abdominal pain, diarrhea, constipation, blood in stool and black tarry stool. Genitourinary: Negative for dysuria and difficulty urinating. Musculoskeletal: Negative for gait problem. Skin: Negative for rash and wound. Neurological: Negative for dizziness, weakness and light-headedness. Hematological: Does not bruise/bleed easily. Psychiatric/Behavioral: Negative for confusion. Past Medical History: Diagnosis Date High cholesterol Hypothyroid Past Surgical History: Procedure Laterality Date EYE SURGERY FOOT SURGERY Allergies Allergen Reactions Codeine Current Outpatient Medications: alendronate (FOSAMAX) 70 mg tablet, Take 1 tablet (70 mg total) by mouth Once a week., Disp: , Rfl: calcium citrate-vitamin D3 (CITRACAL MAXIMUM) 315-250 mg-units per tablet, Take 2 tablets by mouth in the morning., Disp: , Rfl: levothyroxine (SYNTHROID, LEVOTHROID) 75 MCG tablet, Take 1 tablet (75 mcg total) by mouth in the morning., Disp: , Rfl: MULTIVITAMIN ORAL, Take 1 tablet by mouth once daily., Disp: , Rfl: simvastatin (ZOCOR) 20 mg tablet, Take 1 tablet (20 mg total) by mouth nightly., Disp: , Rfl: sod sulf-pot chloride-mag sulf 1.479-0.188- 0.225 gram tablet, Please see instructional sheet givenby physicians office., Disp: 24 tablet, Rfl: 0 Social History Socioeconomic History Marital status: Spouse name: Not on file Number of children: Not on file Years of education: Not on file Highest education level: Not on file Occupational History Not on file Tobacco Use Smoking status: Never Smokeless tobacco: Never Vaping Use Vaping status: Never Used Substance and Sexual Activity Alcohol use: Not Currently Drug use: Never Sexual activity: Defer Other Topics Concern Not on file Social History Narrative Not on file Social Drivers of Health Financial Resource Strain: Not on file Food Insecurity: No Food Insecurity (03/06/2024) [facility] Hunger Vital Sign Worried About Running Out of Food in the Last Year: Never true Ran Out of Food in the Last Year: Never true Transportation Needs: No Transportation Needs (03/06/2024) [facility] from [facility] PRAPARE - Transportation Lack of Transportation (Medical): No Lack of Transportation (Non-Medical): No Physical Activity: Inactive (03/06/2024) Re[facility] from [facility] Exercise Vital Sign Days of Exercise per Week: 0 days Minutes of Exercise per Session: 10 min Stress: No Stress Concern Present (03/06/2024) Re[facility] from [facility] [employer] of Occupational Health - Occupational Stress Questionnaire Feeling of Stress : Not at all Social Connections: Moderately Isolated (03/06/2024) Re[facility] from [facility] Social Connection and Isolation Panel [NHANES] Frequency of Communication with Friends and Family: Three times a week Frequency of Social Gatherings with Friends and Family: Three times a week Attends Catholic Services: 1 to 4 times per year Active Member of Clubs or Organizations: No Attends Club or Organization Meetings: Never Marital Status: Interpersonal Safety: Not on file Housing Instability: Low Risk (03/06/2024) Re[facility] from [facility] Housing Stability Vital Sign Unable to Pay for Housing in the Last Year: No Number of Times Moved in the Last Year: 0 Homeless in the Last Year: No Family History Problem Relation Age of Onset Cancer Father Colon cancer Brother Breast cancer Neg Hx Objective Physical Exam Constitutional: General: She is not in acute distress. Appearance: Normal appearance. She is not ill-appearing. HENT: Head: Normocephalic and atraumatic. Mouth/Throat: Mouth: Mucous membranes are moist. Eyes: Pupils: Pupils are equal, round, and reactive to light. Cardiovascular: Rate and Rhythm: Normal rate. Pulmonary: Effort: Pulmonary effort is normal. No respiratory distress. Abdominal: General: There is no distension. Musculoskeletal: General: Normal range of motion. Skin: General: Skin is warm and dry. Neurological: Mental Status: She is alert and oriented to person, place, and time. Mental status is at baseline. Vital Signs: Blood pressure (!) 185/94, height 154.9 cm (5' 1 ), weight 72.9 kg (160 lb 12.8 oz). Respiratory Source: No data recorded Admission Weight: Weight: 72.9 kg (160 lb 12.8 oz) Labs No results found for: WBC , HGB , HCT , MCV , PLT No results found for: GLU , CALCIUM , NA , K , CO2 , CL , BUN , CREATININE No results found for: AMYLASE No results found for: LIPASE No results found for: ALT , AST , GGT , ALKPHOS , LABBILI No results found for: INR , PROTIME Assessment Screening colonoscopy Family history of colon cancer in brother Plan Colonoscopy with possible biopsy and/or polypectomy. Risks, benefits, and alternatives discussed with patient. Educated on bowel evacuation preparation. Patient verbalizes understanding and wishes toproceed. Evaluation included: Preparing to see the patient (e.g., review of tests) Obtaining and/or reviewing separately obtained history Performing a medically appropriate examination and/or evaluation Counseling and educating the patient/family/caregiver Referring and communicating with other health customer care specialist Encounter for screening colonoscopy [Z12.11] PREETHI MONTAÑO [facility] [place] This note was created with the assistance of a speech recognition program. While intending to generate a timely document that accurately reflects the content of the visit, no guarantee can be provided that every grammatical or spelling mistake has been or will be identified or corrected. Thank you for your understanding. PREETHI Montaño 04/16/24 1331 documented in this encounterTriHealth [facility] [employer] [id number] History of Present illness Narrative* Estrellita Rojas NP - 03/13/2024 6:33 PM EDTAssociated Problem(s): Encounter for subsequent annual wellness visit (AWV) in Medicare patient Reviewed Ht/Wt/BMI Recommend eye exam yearly Recommend dental exams twice a year Balance work/leisure activities Exercises is recommended most days of the week (appropriate as chronic conditions allow) Follow up yearly and prn * MARCUS LINDA - 03/13/2024 5:00 PM EDT Pt Is taking [facility] vision formula superview2 eloy vitamin and mineral supplement 2 softgells daily (one in the am and one in the pm) [facility] Calcium 500 and D3-2daily (one in the morning and one in the evening) [facility] gummies adult multivitamin dietary supplement Soundbody all day allergy cetrazinehydrochloride tab 10mg 1 tab in the morning and 1 in the evening [employer] salonpas lidocaine plus pain relieving roll on liquid for knees daily every morning Extra strength acetaminophen caplets 500mg 2 caplets prn twice daily * Estrellita Rojas NP - 03/13/2024 5:00 PM EDT Images from the original note were not included. Nancy Yoo is a 69 y.o. female presents with chief complaint of No chief complaint on file. HPI: Here for AWV: Diet: balanced Activity: very active Mental Health: good Concerns: none SUBJECTIVE: MEDICATIONS: Current Outpatient Medications Medication Instructions alendronate (FOSAMAX) 70 mg, Oral, Every 7 days levothyroxine (SYNTHROID, LEVOXYL) 75 mcg, Oral, Daily simvastatin (ZOCOR) 20 mg, Oral, Nightly ALLERGIES: Allergies Allergen Reactions Codeine REVIEW OF SYMPTOMS: Review of Systems Constitutional: Negative for appetite change, chills and fever. HENT: Negative for congestion, ear pain and sore throat. Eyes: Negative for pain, discharge, redness and visual disturbance. Respiratory: Negative for cough, shortness of breath and wheezing. Cardiovascular: Negative for chest pain, palpitations and leg swelling. Gastrointestinal: Negative for abdominal pain, blood in stool, constipation, diarrhea, nausea and vomiting. Genitourinary: Negative for difficulty urinating, dysuria and frequency. Musculoskeletal: Negative for arthralgias, back pain, joint swelling and myalgias. Skin: Negative for rash and wound. Neurological: Negative for dizziness, tremors, seizures, syncope and headaches. Psychiatric/Behavioral: Negative for behavioral problems, self-injury and suicidal ideas. The patient is not nervous/anxious. Hematological: Does not bruise/bleed easily. Endocrine: Negative for polydipsia, polyphagia and polyuria. Allergic/Immunologic: Negative for environmental allergies and food allergies. PAST MEDICAL HISTORY Past Medical History: Diagnosis Date Allergic rhinitis Hyperlipidemia (CMS/HCC) Hypertension (CMS/HCC) Hypertriglyceridemia (CMS/HCC) Hypothyroidism (CMS/HCC) OA (osteoarthritis) of knee Osteoporosis (CMS/HCC) Pain and swelling of knee, left Past Surgical History: Procedure Laterality Date BUNIONECTOMY Bilateral DILATION AND CURETTAGE OF UTERUS 1995 family history includes Cancer in her father; Parkinson's disease in her mother. OBJECTIVE: Visit Vitals BP 112/80 (BP Location: Left arm, Patient Position: Sitting, BP Cuff Size: Adult long) Pulse 76 Temp 98.3 F (Temporal) Resp 18 Ht 5' 1 Wt 161 lb 6.4 oz SpO2 96% BMI 30.50 kg/m Smoking Status Never BSA 1.77 m Physical Exam Vitals and nursing note reviewed. Constitutional: General: She is not in acute distress. Appearance: Normal appearance. HENT: Head: Normocephalic and atraumatic. Right Ear: Tympanic membrane, ear canal and external ear normal. Left Ear: Tympanic membrane, ear canal and external ear normal. Nose: Nose normal. Mouth/Throat: Mouth: Mucous membranes are moist. Eyes: Extraocular Movements: Extraocular movements intact. Conjunctiva/sclera: Conjunctivae normal. Neck: Vascular: No carotid bruit. Cardiovascular: Rate and Rhythm: Normal rate and regular rhythm. Pulses: Normal pulses. Heart sounds: Normal heart sounds. Pulmonary: Effort: Pulmonary effort is normal. Breath sounds: Normal breath sounds. Abdominal: General: Bowel sounds are normal. There is no distension. Palpations: Abdomen is soft. There is no mass. Tenderness: There is no abdominal tenderness. Musculoskeletal: General: Normal range of motion. Cervical back: Normal range of motion and neck supple. Right lower leg: No edema. Left lower leg: No edema. Lymphadenopathy: Cervical: No cervical adenopathy. Skin: General: Skin is warm and dry. Capillary Refill: Capillary refill takes 2 to 3 seconds. Findings: No rash. Neurological: General: No focal deficit present. Mental Status: She is alert and oriented to person, place, and time. Psychiatric: Mood and Affect: Mood normal. Behavior: Behavior normal. Thought Content: Thought content normal. Judgment: Judgment normal. ASSESSMENT AND PLAN: No follow-ups on file. Problem List Items Addressed This Visit Hypothyroidism, unspecified (CMS/HCC) Colon cancer screening Relevant Orders Ambulatory referral to General Surgery Encounter for subsequent annual wellness visit (AWV) in Medicare patient - Primary Reviewed Ht/Wt/BMI Recommend eye exam yearly Recommend dental exams twice a year Balance work/leisure activities Exercises is recommended most days of the week (appropriate as chronic conditions allow) Follow up yearly and prn documented in this encounterNOMS HealthcareEvaluation note* Diagnosis Hypothyroidism, unspecified (CMS/HCC) documented in this encounter [facility]* Diagnosis Encounter for subsequent annual wellness visit (AWV) in Medicare patient- Primary Colon cancer screening Special screening for malignant neoplasms, colon Hypothyroidism, unspecified type (CMS/HCC) documented in this encounter [facility]* Diagnosis Hypothyroidism, unspecified type (CMS/HCC)- Primary Osteoporosis, postmenopausal (CMS/HCC) Senile osteoporosis Essential hypertension, benign (CMS/HCC) Essential hypertension, benign Mixed hyperlipidemia (CMS/HCC) Mixed hyperlipidemia Encounter for screening mammogram for malignant neoplasm of breast Encounter for subsequent annual wellness visit (AWV) in Medicare patient- Primary Colon cancer screening Special screening for malignant neoplasms, colon Hypothyroidism, unspecified type (CMS/HCC) Age-related osteoporosis without current pathological fracture (CMS/HCC) Osteoporosis (CMS/HCC) Unspecified osteoporosis [facility] Diagnosis Hypothyroidism, unspecified type (CMS/HCC)- Primary Osteoporosis, postmenopausal (CMS/HCC) Senile osteoporosis Essential hypertension, benign (CMS/HCC) Essential hypertension, benign Mixed hyperlipidemia (CMS/HCC) Mixed hyperlipidemia Encounter for screening mammogram for malignant neoplasm of breast Encounter for subsequent annual wellness visit (AWV) in Medicare patient- Primary Colon cancer screening Special screening for malignant neoplasms, colon Hypothyroidism, unspecified type (CMS/HCC) Hyperlipidemia, unspecified (CMS/HCC) [facility]* Diagnosis Hypothyroidism, unspecified type (CMS/HCC)- Primary Osteoporosis, postmenopausal (CMS/HCC) Senile osteoporosis Essential hypertension, benign (CMS/HCC) Essential hypertension, benign Mixed hyperlipidemia (CMS/HCC) Mixed hyperlipidemia Encounter for screening mammogram for malignant neoplasm of breast Encounter for subsequent annual wellness visit (AWV) in Medicare patient- Primary Colon cancer screening Special screening for malignant neoplasms, colon Hypothyroidism, unspecified type (CMS/HCC) URI, acute- Primary Acute upper respiratory infections of unspecified site [facility]* Diagnosis Encounter for screening colonoscopy- Primary Family history of colon cancer Family history of malignant neoplasm of gastrointestinal tract Screen for colon cancer Special screening for malignant neoplasms, colon [facility] Diagnosis Hypothyroidism, unspecified type (CMS/HCC)- Primary Osteoporosis, postmenopausal (CMS/HCC) Senile osteoporosis Essential hypertension, benign (CMS/HCC) Essential hypertension, benign Mixed hyperlipidemia (CMS/HCC) Mixed hyperlipidemia Encounter for screening mammogram for malignant neoplasm of breast Encounter for subsequent annual wellness visit (AWV) in Medicare patient- Primary Colon cancer screening Special screening for malignant neoplasms, colon Hypothyroidism, unspecified type (CMS/HCC) URI, acute- Primary Acute upper respiratory infections of unspecified site Essential hypertension, benign (CMS/HCC)- Primary Essential hypertension, benign Osteoporosis, postmenopausal (CMS/HCC) Senile osteoporosis Hypothyroidism, unspecified type (CMS/HCC) Mixed hyperlipidemia (CMS/HCC) Mixed hyperlipidemia [facility]* Diagnosis Hypothyroidism, unspecified type (CMS/HCC)- Primary Osteoporosis, postmenopausal (CMS/HCC) Senile osteoporosis Essential hypertension, benign (CMS/HCC) Essential hypertension, benign Mixed hyperlipidemia (CMS/HCC) Mixed hyperlipidemia Encounter for screening mammogram for malignant neoplasm of breast Encounter for subsequent annual wellness visit (AWV) in Medicare patient- Primary Colon cancer screening Special screening for malignant neoplasms, colon Hypothyroidism, unspecified type (CMS/HCC) URI, acute- Primary Acute upper respiratory infections of unspecified site Age-related osteoporosis without current pathological fracture (CMS/HCC) Osteoporosis (CMS/HCC) Unspecified osteoporosis [facility]* Diagnosis Hypothyroidism, unspecified type (CMS/HCC)- Primary Osteoporosis, postmenopausal (CMS/HCC) Senile osteoporosis Essential hypertension, benign (CMS/HCC) Essential hypertension, benign Mixed hyperlipidemia (CMS/HCC) Mixed hyperlipidemia Encounter for screening mammogram for malignant neoplasm of breast Encounter for subsequent annual wellness visit (AWV) in Medicare patient- Primary Colon cancer screening Special screening for malignant neoplasms, colon Hypothyroidism, unspecified type (CMS/HCC) URI, acute- Primary Acute upper respiratory infections of unspecified site Hypothyroidism, unspecified Hyperlipidemia, unspecified (CMS/HCC) [facility]* Diagnosis Hypothyroidism, unspecified type (CMS/HCC)- Primary Osteoporosis, postmenopausal (CMS/HCC) Senile osteoporosis Essential hypertension, benign (CMS/HCC) Essential hypertension, benign Mixed hyperlipidemia (CMS/HCC) Mixed hyperlipidemia Encounter for screening mammogram for malignant neoplasm of breast Encounter for subsequent annual wellness visit (AWV) in Medicare patient- Primary Colon cancer screening Special screening for malignant neoplasms, colon Hypothyroidism, unspecified type (CMS/HCC) Hypothyroidism, unspecified type (CMS/HCC)- Primary Osteoporosis, postmenopausal (CMS/HCC) Senile osteoporosis Mixed hyperlipidemia (CMS/HCC) Mixed hyperlipidemia Encounter for screening mammogram for malignant neoplasm of breast documented [facility]* Diagnosis Hypothyroidism, unspecified type- Primary Osteoporosis, postmenopausal Senile osteoporosis Essential hypertension, benign Essential hypertension, benign Mixed hyperlipidemia Mixed hyperlipidemia Encounter for screening mammogram for malignant neoplasm of breast Encounter for subsequent annual wellness visit (AWV) in Medicare patient- Primary Colon cancer screening Special screening for malignant neoplasms, colon Hypothyroidism, unspecified type Hypothyroidism, unspecified type- Primary Osteoporosis, postmenopausal Senile osteoporosis Mixed hyperlipidemia Mixed hyperlipidemia Encounter for screening mammogram for malignant neoplasm of breast Age-related osteoporosis without current pathological fracture Osteoporosis Unspecified osteoporosis documented [facility]* Diagnosis Hypothyroidism, unspecified type- Primary Osteoporosis, postmenopausal Senile osteoporosis Essential hypertension, benign Essential hypertension, benign Mixed hyperlipidemia Mixed hyperlipidemia Encounter for screening mammogram for malignant neoplasm of breast Encounter for subsequent annual wellness visit (AWV) in Medicare patient- Primary Colon cancer screening Special screening for malignant neoplasms, colon Hypothyroidism, unspecified type Hypothyroidism, unspecified type- Primary Osteoporosis, postmenopausal Senile osteoporosis Mixed hyperlipidemia Mixed hyperlipidemia Encounter for screening mammogram for malignant neoplasm of breast Hyperlipidemia, unspecified [facility]* Diagnosis Onset Date Resolution Status Admit Date Breast cancer screening by mammogram acuteMarch 25, 2025 10:22amEncounter for subsequent annual wellness visit (AWV) in Medicare patientacuteOctober 2024 10:22amHypothyroidismacute March 25, 2025 10:22amMixed hyperlipidemiaacuteOct2024 10:22am OsteoporosisacuteMarch 25, 2025 10:22am [facility] Work Phone: InstructionsNot on filedocumented in this encounter [facility]ructionsNot on filedocumented in this encounter [facility] SystemReason for referral (narrative)* Consultation (Routine) - Pending ReviewSpecialtyDiagnoses / ProceduresReferred By ContactReferred To ContactGeneral Surgery Diagnoses Colon cancer screening Procedures SC OFFICE/OUTPATIENT [facility] 60 MINUTES Estrellita Rojas NP [address] [place] [address] Tara King MD [address] [place] [address] Referral IDStatusReasonStart DateExpiration DateVisits RequestedVisits [id number] Review Specialty Services Required / [facility] HealthcareReason for referral (narrative)No reason for referral information availableWadsworth-Rittman Hospital Work Phone: Summary Purpose Family History No Family History Records FoundNo Family History Records FoundNo Family History Records FoundNo Family History Records FoundNo Family History Records Found Advance Directives Advance Directive Response Recorded Date/ Time Advance Directives No November 21 12:14pm Chief Complaint and Reason for Visit Chief Complaint Admit Date Medicare Wellness March 25, 2025 1 0:22am Reason for Visit Admit Date Breast cancer screening by mammogram Oct suyapa2024 10:22am Encounter for subsequent anais ual wellness visit (AWV) in Medicare patient March 25, 2025 10:22am Hypothyroidism March 25, 2025 1 0:22am Mixed hyperlipidemia March 25, 2025 10:22am Osteoporosis March 25, 2025 1 0:22am Additional Source Comments INFORMATION SOURCE (unrecogn ized section and content) DATE CREATED AUTHOR 11/14/2018 [facility] DATE CREATED AUTHOR AUTHOR'S ORGANIZ ATION 11/23/2021 [facility] DATE CREATED AUTHOR AUTHOR'S ORGANIZ ATION 04/18/2024 [facility] DATE CREATED AUTHOR AUTHOR'S ORGANIZ ATION 05/03/2024 [facility] DATE CREATED AUTHOR AUTHOR'S ORGANIZ ATION 10/22/2024 [facility] Reason for Visit (unrecogniz ed section and content) ReasonCommentsMed RefillReasonCommentsCoughReasonCommentsColon Cancer Screening SCREENING COLONOSCOPY, NO PREVIOUS, REFERRED BY ESTRELLITA ROJAS, NPSpecialty Diagnoses / ProceduresReferred By ContactReferred To ContactGeneral Surgery Diagnoses Colon cancer screening Procedures SC OFFICE OUTPATIENT VISIT 60-74 MINS HIGH MDM AMB REFERRAL TO GENERAL SURGERY Estrellita Rojas, [employer] NON MEDICAL-TACTICAL DECEPTION PLANS OFFICER [address] [place] [address] Phone: tel: fax: Tara King MD [address] [place] [address] Phone: tel: fax: Referral IDStatusReasonStart DateExpiration DateVisits RequestedVisits [id number] [id number]ttoa Care Teams (unrecognized sec tion and content) Team MemberRelationshipSpecialtyStart DateEnd Date Oscar Aldrich MD [address] [place] [address] PCP - GeneralFamily Medicine07/27/23 Estrellita Rojas NP [address] [place] [address] Nurse Pract[facility]erH[facility] Wpbsjejz73/1/23Team MemberRelationshipSpecialtyStart DateEnd Date Oscar Aldrich MD [address] [place] [address] [facility] - [facility]07/27/23 Estrellita Rojas NP [address] [place] [address] Nurse Pract[facility]erChat[facility]03/05/23Team MemberRelationshipSpecialtyStart DateEnd Date Oscar Aldrich MD [address] [place] [address] PCP - [facility]07/27/23 Estrellita Rojas NP [address] [place] [address] [facility]03/05/23Team MemberRelationshipSpecialtyStart DateEnd Date Oscar Aldrich MD [address] [place] [address] PCP - [facility]07/27/23 Estrellita Rojas NP [address] [place] [address] Nurse PractitionerFamily Swhsoheg02/1/23Team MemberRelationshipSpecialtyStart DateEnd Date Oscar Aldrich MD [address] [place] [address] PCP - GeneralFamily Medicine07/27/23 Estrellita Rojas NP [address] [place] [address] Nurse Pract[facility]erH[facility] Wakryqap47/1/23Team MemberRelationshipSpecialtyStart DateEnd Date Oscar Aldrich MD [address] [place] [address] PCP - Generalmily Medicine07/27/23 Estrellita Rojas NP [address] [place] [address] Nurse PractitionerH[facility] Hospital Gilhptls09/1/23Team MemberRelationshipSpecialtyStart DateEnd Date Estrellita Rojas, [employer] NON MEDICAL-TACTICAL DECEPTION PLANS OFFICER [address] [place] [address] PCP - GeneralNurse Fkkpetrwbojy78/12/24Team MemberRelationshipSpecialtyStart DateEnd Date Estrellita Rojas, [employer] NON MEDICAL-TACTICAL DECEPTION PLANS OFFICER [address] [place] [address] PCP - GeneralNurse Bxetohoqdpjn40/12/24Team MemberRelationshipSpecialtyStart DateEnd Date Oscar Aldrich MD [address] [place] [address] PCP - GeneralFadcly Medicine07/27/23 Estrellita Rojas, ZAYRA [address] [place] [address] PCP - O [facility]07/12/24 Estrellita Rojas, ZAYRA [address] [place] [address] Nurse PractitionerH[facility] Hospital Ewubefhk44/1/23Team MemberRelationshipSpecialtyStart DateEnd Date Oscar Aldrich MD [address] [place] [address] PCP - [facility] Medicine07/27/23 Estrellita Rojas NP [address] [place] [address] PCP - [facility]07/12/24 Estrellita Rojas NP [address] [place] [address] Nurse Pract[facility] Hospital Ynvgjhcq61/1/23Team MemberRelationshipSpecialtyStart DateEnd Date Oscar Aldrich MD [address] [place] [address] PCP - [facility] Medicine07/27/23 Estrellita Rojas NP [address] [place] [address] PCP - [facility]07/12/24 Estrellita Rojas NP [address] [place] [address] [facility] Pract[facility]03/05/23Team MemberRelationshipSpecialtyStart DateEnd Date Oscar Aldrich MD [address] [place] [address] PCP - [facility]07/27/23 Estrellita Rojas NP [address] [place] [address] PCP - [facility]07/12/24 Estrellita Rojas NP [address] [place] [address] Nurse Pract[facility]03/05/23Team MemberRelationshipSpecialtyStart DateEnd Date Oscar Aldrich MD [address] [place] [address] PCP - [facility]07/27/23 Estrellita Rojas NP [address] [place] [address] PCP - [facility]07/12/24 Estrellita Rojas NP [address] [place] [address] Nurse Pract[facility]03/05/23 Team Status: Active Member Role/Relationship Status Dates Estrellita Rojas NP-C Primary Care Provider Active Team Status: Inactive Member Role/Relationship Status Dates SAUNDRA Bocanegra Primary Care Provider Active Start: March 25, 2025 End: March 25, 2025Estrellita Rojas NP-CAttending ProviderActiveStart: March 25, 2025 End: March 25, 2025Team MemberRelationshipSpecialtyStart DateEnd Date Oscar Aldrich MD PCP - [facility] Medicine07/27/23 Estrellita Rojas NP [address] [place] [address] PCP - ACO [facility]07/12/24 Estrellita Rojas NP Nurse PractitionerH[facility]emann Hospital Yokyczom25/1/23 Goals (unrecognized section and content) Goals may be documented in a n alternate section FOR RECORDS PERTAINING TO PATIENTS WHO ARE OR HAVE BEEN ENROLLED IN A CHEMICAL DEPENDENCY/SUBSTANCEABUSE PROGRAM, SOME INFORMATION MAY BE OMITTED. This clinical summary was aggregated from multiple sources. Caution should be exercised in using it in the provision of clinical care. This summary normalizes information from multiple sources, and as a consequence, information in this document may materially change the coding, format and clinical context of patient data. In addition, data may be omitted in some cases. CLINICAL DECISIONS SHOULD BE BASED ON THE PRIMARY CLINICAL RECORDS. [facility] [employer] provides no warranty or guarantee of the accuracy or completeness of information in this document.
--- NOTE | 2025-04-15 15:28 | MM_ITS ---
Patient Name: FREDA YOO MR#: [id number] : 1955 Exam Date: 04/15/2025 Ordering Doctor: LAURENT SANCHEZ CNP RADIOLOGY REPORT PROCEDURE: MM TOMOSYNTHESIS SCREENING BI COMPARISON: MM TOMOSYNTHESIS SCREENING BI, 01/22/2024. MM TOMOSYNTHESIS SCREENING BI, 11/30/2022. MM SCREENING MAMMO BI, 11/20/2018. MM SCREENING MAMMO BI, 05/28/2015. INDICATIONS: Screening Calculator Name NCI Breast Cancer Risk Assessment Tool 5 Year Breast Cancer Risk 1.60% Lifetime Breast Cancer Risk 4.30% Personal Breast Cancer No Personal Ovarian Cancer No Treatments None Family Cancers Father with lung cancer at age ~66. LOCATION: [facility] BREAST COMPOSITION: The breasts are heterogeneously dense, which may obscure small masses. FINDINGS: RIGHT BREAST: No significant suspicious finding. Benign-appearing lymph nodes in noted along the chest wall. LEFT BREAST: No significant suspicious finding. Benign-appearing lymph nodes in noted along the chest wall. Similar focal asymmetries are present. DIAGNOSTIC CATEGORY 2--BENIGN FINDING. NO CHANGE FROM COMPARISON. RECOMMENDATIONS: ROUTINE MAMMOGRAM AND CLINICAL EVALUATION IN 12 MONTHS. Dictated by: Da Deleon MD on 04/15/2025 at 17:50 Approved by: Da Deleon MD on 04/15/2025 at 17:59
== END 2025-04-15 15:25 | disposition home or self-care (01) ==
LOC: RAD 15:24
PROVIDERS: PCP Nurse Practitioner; Visit Provider Nurse Practitioner
DX: M81.0 Age-related osteoporosis without current pathological fracture (principal); Z12.31 Encounter for screening mammogram for malignant neoplasm of breast; Z80.1 Family history of malignant neoplasm of trachea, bronchus and lung; M85.88 Other specified disorders of bone density and structure, other site
CPT/HCPCS: 77063; 77067; 77080